=== PATIENT | male | born 1940 | race Caucasian/White ===

== ENCOUNTER 2018-08-07 11:21 | Outpatient (CLI) | payer OTHER, SELFPAY ==
[2018-08-08 10:31] LABS: PSA, Diagnostic 0.1 ng/ml (0-6.5)
== END 2018-08-07 11:41 ==
PROVIDERS: PCP Family Medicine; Visit Provider Radiology Radiation Oncology
DX: C61 Malignant neoplasm of prostate (principal)
CPT/HCPCS: 36415; 84153

== ENCOUNTER 2018-10-20 08:58 | Outpatient (CLI) | payer OTHER, SELFPAY ==
[2018-10-21 09:53] LABS: PSA, Diagnostic 0.1 ng/ml (0-6.5)
[2018-10-22 09:49] LABS: Testosterone, Total 318 ng/dL (240-950)
== END 2018-10-20 09:18 ==
PROVIDERS: PCP Family Medicine; Visit Provider Nurse Practitioner
DX: C61 Malignant neoplasm of prostate (principal)
CPT/HCPCS: 36415; 84403; 84153

== ENCOUNTER 2018-11-05 01:51 | Outpatient (CLI) | payer OTHER, SELFPAY ==
[2018-11-05 08:56] LABS: HCT 45.1 % (40.0-50.0); HGB 15.1 g/dL (13.5-17.5); Mean Corp. HGB Concentration 33.5 g/dL (32.0-36.0); Mean Corpuscular Hemoglobin 32.3 pg (27.0-33.0); Mean Corpuscular Volume 96.6 fL (80-95); Mean Platelet Volume 8.9 fL (8.0-11.0); Platelet Count 144 x1000/uL (130-400); RBC 4.67 m/cumm (4.50-6.00); White Blood Cell Count 3.11 k/cumm (4.4-10.8)
[2018-11-05 09:29] LABS: Hemoglobin A1C 5.7 % (4.5-6.2)
[2018-11-05 10:22] LABS: ALT 45 U/L (12-78); AST 33 U/L (15-37); Albumin 3.9 g/dL (3.4-5.0); Alkaline Phosphatase 48 U/L (46-116); BUN 21 mg/dL (7-18); Bilirubin, Total 0.6 mg/dL (0.2-1.0); CREATININE 1.16 mg/dL (0.70-1.30); Calcium 8.7 mg/dL (8.5-10.1); Chloride 102 mmol/L (98-107); Cholesterol 199 mg/dL (50-200); Glucose 103 mg/dL (70-100); HDL Cholesterol 68 mg/dL (40-60); LDL CHOLESTEROL 110 mg/dL (<100); Potassium 4.2 mmol/L (3.5-5.1); Sodium 139 mmol/L (136-145); Triglyceride 77 mg/dL (30-150)
== END 2018-11-05 02:11 ==
PROVIDERS: PCP Family Medicine; Visit Provider Family Medicine
DX: R73.01 Impaired fasting glucose (principal); I10 Essential (primary) hypertension; Z01.818 Encounter for other preprocedural examination
CPT/HCPCS: 36415; 80053; 80061; 83721; 85027; 83036

== ENCOUNTER 2018-12-24 10:12 | Outpatient (CLI) | payer OTHER, SELFPAY ==
[2018-12-24 10:42] LABS: Abs Immature Grans 0.02 k/cumm (0.0-0.09); Absolute Basophil Count 0.01 k/cumm (0.0-0.2); Absolute Eosinophil Count 0.08 k/cumm (0.0-0.7); Absolute Lymphocyte Count 0.85 k/cumm (1.2-3.4); Absolute Monocyte Count 0.48 k/cumm (0.11-0.7); Absolute Neutrophil Count 3.12 k/cumm (1.2-6.7); Basophils % 0.2; Eosinophils % 1.8; HCT 44.8 % (40.0-50.0); HGB 15.1 g/dL (13.5-17.5); Immature Grans % 0.4; Lymphocytes % 18.6; Mean Corp. HGB Concentration 33.7 g/dL (32.0-36.0); Mean Corpuscular Hemoglobin 32.1 pg (27.0-33.0); Mean Corpuscular Volume 95.3 fL (80-95); Mean Platelet Volume 9.1 fL (8.0-11.0); Monocytes % 10.5; Neutrophils % 68.5; Platelet Count 157 x1000/uL (130-400); RBC Distribution Width 13.4 % (11.8-14.1); White Blood Cell Count 4.56 k/cumm (4.4-10.8)
[2018-12-24 11:57] LABS: ALT 37 U/L (12-78); AST 28 U/L (15-37); Albumin 3.6 g/dL (3.4-5.0); Alkaline Phosphatase 50 U/L (46-116); Anion Gap 7.5 mmol/L (3-11); BUN 22 mg/dL (7-18); Bilirubin, Total 0.5 mg/dL (0.2-1.0); CO2 28.5 mmol/L (21.0-32.0); CREATININE 1.12 mg/dL (0.70-1.30); Chloride 105 mmol/L (98-107); Glucose 74 mg/dL (70-100); Magnesium 2.2 mg/dL (1.8-2.4); Potassium 4.7 mmol/L (3.5-5.1); Sodium 141 mmol/L (136-145); TSH (W/Ref FT4) 1.56 uIU/mL (0.358-3.74)
== END 2018-12-24 10:32 ==
PROVIDERS: PCP Family Medicine; Visit Provider Family Medicine
DX: R00.2 Palpitations (principal); R73.01 Impaired fasting glucose
CPT/HCPCS: 36415; 80053; 83735; 84443; 85025

== ENCOUNTER 2018-12-25 02:52 | Outpatient (CLI) | payer OTHER, SELFPAY ==
--- NOTE | 2019-01-12 11:24 | ZIOP_ITS ---
ELIERO MONITOR REPORT DATE OF DICTATION: January 12, [address]: 11 days, 22 hours, December 25-2018 Baseline rhythm sinus. Occasional single PAC. SVT noted 11,028 bursts. Longest burst 5 minutes, 21 second duration, average rate 116 bpm. Maximum rate SVT 182 bpm. Rare single PVC. No VT. No bradycardia. 52 triggered events occurring during SVT +/- single PAC, single PVC, rates 62-150 bpm. 11 symptomatic episodes. Skipped, irregular beats, fluttering, racing, deep breath, pounding, all no indira during sinus rhythm +/- single PAC's, +/- SVT. Heart rates 65-144 bpm. Average heart rate sinus 69 bpm, range 52-106 bpm.
== END 2018-12-25 03:12 ==
PROVIDERS: PCP Family Medicine; Visit Provider Family Medicine
DX: R00.2 Palpitations (principal); I47.1 Supraventricular tachycardia
CPT/HCPCS: 93225

== ENCOUNTER 2019-01-29 10:31 | Outpatient (CLI) | payer OTHER, SELFPAY ==
[2019-01-30 09:46] LABS: PSA, Diagnostic <0.1 ng/ml (0-6.5)
[2019-02-02 16:21] LABS: Testosterone, Total 406 ng/dL (240-950)
== END 2019-01-29 10:51 ==
PROVIDERS: PCP Family Medicine; Visit Provider Nurse Practitioner
DX: C61 Malignant neoplasm of prostate (principal)
CPT/HCPCS: 36415; 84403; 84153

== ENCOUNTER 2019-07-06 01:52 | Outpatient (CLI) | payer OTHER, SELFPAY ==
[2019-07-06 10:34] LABS: Magnesium 2.1 mg/dL (1.8-2.4)
[2019-07-07 09:24] LABS: PSA, Diagnostic <0.1 ng/ml (0-6.5)
== END 2019-07-06 02:12 ==
PROVIDERS: PCP Family Medicine; Visit Provider Nurse Practitioner
DX: R00.2 Palpitations (principal); C61 Malignant neoplasm of prostate
CPT/HCPCS: 36415; 83735; 84153

== ENCOUNTER 2019-08-03 00:59 | Outpatient (CLI) | payer OTHER, SELFPAY ==
--- NOTE | 2019-08-03 12:36 | DI.US_ITS ---
SYMPTOMS/DIAGNOSIS: PROSTATE CA, FEELS LIKE NOT EMPTYING COMPLETELY RENAL ULTRASOUND: The right kidney measures 8.7 cm. The left kidney 9.7 cm. In the left kidney there is a 9 x 8 x 9 mm hyperechoic avascular region involving the mid pole cortex which may represent a mass. The prevoid bladder contains 63 cc's. The postvoid bladder 2 cc's. SUMMARY: The possibility of a left renal mass is raised. Further assessment with renal CT is recommended.
== END 2019-08-03 01:19 ==
PROVIDERS: PCP Family Medicine; Visit Provider Nurse Practitioner
DX: C61 Malignant neoplasm of prostate (principal); R39.14 Feeling of incomplete bladder emptying; N28.89 Other specified disorders of kidney and ureter
CPT/HCPCS: 76770

== ENCOUNTER 2019-08-17 01:06 | Outpatient (CLI) | payer OTHER, SELFPAY ==
[2019-08-17] MEDS: Omnipaque 350 MG/ML 100 ML BTL IJ (10:56)
--- NOTE | 2019-08-17 11:01 | DI.CT_ITS ---
EXAM: CT ABDOMEN PELVIS WO/W TECHNIQUE: Imaging Protocol: Axial computed tomography images with coronal and sagittal reformatted images were created and reviewed CONTRAST MATERIAL: Intravenous: Omnipaque 350 Contrast volume:100 mL contrast route:IV - Oral:No COMPARISON: US renal from 08/03/2019 FINDINGS: Noncontrast CT scan of the abdomen and pelvis shows no evidence of nephrolithiasis or ureterolithiasi s. There is cholelithiasis present. No biliary ductal dilatation is present CT scan of the abdomen and pelvis was then performed following the uneventful administration of intra venous contrast material. There are no acute findings in the lung bases. There is decreased attenua tion of the liver suggesting fatty infiltration. No suspicious hepatic mass is present. The portal, superior mesenteric, splenic veins are patent. There is pancreatic atrophy present. Calcifications are seen in the spleen consistent with prior granulomatous disease. It is of an adrenal mass. The right kidney shows normal and symmetric enhancement. No evidence of a solid renal mass or obstru ction. The left kidney shows normal and symmetric enhancement. There is no evidence of a solid mass or obst ruction. There is what appears to be an area of cortical scarring in the upper pole laterally. This appears to correspond to the area on the ultrasound dated 08/03/2019. The urinary bladder is intact there is diverticulosis of the colon. There is no evidence of acute di verticulitis. There is no evidence of bowel obstruction or inflammation. Normal appendix is seen in the right lower quadrant. There is atherosclerosis of the abdominal aorta. There is no evidence of an aneurysm. No significant abdominal pelvic adenopathy, ascites, or pneumoperitoneum is present. Degenerative changes are present in the spine. Grade 1 pseudo spondylolisthesis of L4 on L5 is prese nt. 7 minutes delayed images of the abdomen and pelvis were performed there are no filling defects within the renal collecting systems. The urinary bladder is intact no filling defect is identified. IMPRESSION: No evidence of a left renal mass. The area of concern appears to represent a focal area of cortical scarring within the superior aspect of the left kidney. No evidence of nephrolithiasis or obstructive uropathy. Cholelithiasis. DATA REPOSITORY: All CT scans at this facility are submitted to the National Radiology Data Registry (NRDR) Dose Index Registry (DIR) with the [employer] (ACR). RADIATION OPTIMIZATION: All CT scans at this facility use at least one of these dose optimization te chniques: automated exposure control; mA and/or kV adjustment per patient size (includes targeted exa ms where dose is matched to clinical indication); or iterative reconstruction.
== END 2019-08-17 01:26 ==
PROVIDERS: PCP Family Medicine; Visit Provider Nurse Practitioner
DX: K80.20 Calculus of gallbladder without cholecystitis without obstruction (principal); N28.89 Other specified disorders of kidney and ureter; R39.14 Feeling of incomplete bladder emptying; K76.0 Fatty (change of) liver, not elsewhere classified
CPT/HCPCS: 74178; 82565; J3490

== ENCOUNTER 2019-11-02 08:59 | Outpatient (CLI) | payer OTHER, SELFPAY ==
[2019-11-04 15:12] LABS: PSA, Diagnostic <0.1 ng/mL (0.0-6.5)
[2019-11-05 03:02] LABS: Testosterone, Total 431 ng/dL (240-950)
== END 2019-11-02 09:19 ==
PROVIDERS: PCP Nurse Practitioner; Visit Provider Nurse Practitioner
DX: C61 Malignant neoplasm of prostate (principal)
CPT/HCPCS: 36415; 84403; 84153

== ENCOUNTER 2019-11-13 03:48 | Outpatient (CLI) | payer OTHER, SELFPAY ==
--- NOTE | 2019-11-30 08:18 | ZIOP_ITS ---
Date of service: 11/30/19 Time of Service: 08:18 ZIO Patch [employer] Analyst Note: This is a 2-week ZIO patch ordered for indication of supraventricular tachycardia. ?The patient was in normal sinus rhythm for the majority of the recording. ?There were 3 episodes of supraventricular tachycardia with the longest lasting 18 beats. ?There were occasional (4.9%) supraventricular ectopic beats. ?There were no episodes of ventricular tachycardia and rare (less than 1%) ventricular ectopic beats. ?There were no pauses greater than 3 seconds or evidence of high degree heart block. ?Patient triggers were associated with sinus rhythm and singular supraventricular ectopic beats.
== END 2019-11-13 04:08 ==
PROVIDERS: PCP Nurse Practitioner; Visit Provider Nurse Practitioner
DX: I47.1 Supraventricular tachycardia (principal); I49.3 Ventricular premature depolarization
CPT/HCPCS: 0296T

== ENCOUNTER 2019-11-30 08:18 | Outpatient (CLI) | payer OTHER, SELFPAY | END 2019-11-30 08:38 | PROVIDERS: PCP Nurse Practitioner; Referring Provider Nurse Practitioner; Visit Provider Internal Medicine Cardiovascular Disease | DX: I47.1 Supraventricular tachycardia (principal); I49.3 Ventricular premature depolarization | CPT/HCPCS: 0298T ==

== ENCOUNTER 2020-04-01 11:19 | Outpatient (RCR) | payer OTHER, SELFPAY ==
[2020-04-04 13:59] LABS: PSA, Ultrasensitive 0.02 ng/mL (<= 6.5)
[2020-04-06 07:47] LABS: Testosterone, Total 470 ng/dL (240-950)
== END 2020-04-17 23:59 | disposition home or self-care (01) ==
LOC: INF 11:19
PROVIDERS: PCP Nurse Practitioner; Visit Provider Nurse Practitioner
DX: C61 Malignant neoplasm of prostate (principal)
CPT/HCPCS: 36415; 84153; 84403

== ENCOUNTER 2020-09-16 02:56 | Outpatient (CLI) | payer OTHER, SELFPAY ==
[2020-09-16 10:59] LABS: CREATININE 1.17 mg/dL (0.70-1.30); Potassium 4.3 mmol/L (3.5-5.1)
[2020-09-20 12:27] LABS: PSA, Ultrasensitive 0.02 ng/mL (<= 6.5)
== END 2020-09-16 03:16 ==
PROVIDERS: PCP Nurse Practitioner; Visit Provider Nurse Practitioner
DX: I10 Essential (primary) hypertension (principal); C61 Malignant neoplasm of prostate
CPT/HCPCS: 36415; 84153; 82565; 84132

== ENCOUNTER 2020-09-17 10:23 | Outpatient (REF) | payer OTHER, SELFPAY ==
[2020-10-03 15:36] LABS: Misc Referral (VDH) See Comments
== END 2020-09-17 10:43 ==
LOC: LBN 10:23
PROVIDERS: PCP Nurse Practitioner; Visit Provider Nurse Practitioner
DX: R69 Illness, unspecified (principal)
CPT/HCPCS: 87505

== ENCOUNTER 2021-02-27 13:57 | Outpatient (CLI) | payer OTHER, SELFPAY ==
--- NOTE | 2021-02-27 13:45 | RT.EKG_ITS ---
APPROVED REPORT Exam: Resting ECG Patient Location: O HR:75 bpm ECG Measurements Heart Rate 75 AXIS CO 184 P 42 QRSd 158 QRS -42 QT 412 T -3 QTc 462 Conclusion Sinus rhythm...normal P axis, V-rate 60- 99 RBBB and LAFB...QRSd >120mS, axis(-40,240) Inferior infarct, old...Q >35mS, II III aVF
== END 2021-02-27 13:58 | disposition home or self-care (01) ==
LOC: DI.CM 13:57
PROVIDERS: PCP Nurse Practitioner; Visit Provider Nurse Practitioner Family
DX: I47.1 Supraventricular tachycardia (principal)
CPT/HCPCS: 93010

== ENCOUNTER → 2021-05-04 11:19 | Outpatient (BNVA) | payer OTHER, SELFPAY | PROVIDERS: PCP Nurse Practitioner; Referring Provider Nurse Practitioner; Visit Provider Physical Therapy Assistant | DX: R19.5 Other fecal abnormalities (principal); I10 Essential (primary) hypertension; Z86.010 Personal history of colon polyps | CPT/HCPCS: 99214 ==

== ENCOUNTER 2021-05-08 07:07 | Day surgery (SDC) | payer OTHER, SELFPAY ==
[2021-05-08 07:33] VITALS: BP 163/100; PULSE 95; RESP 18; TEMP 36.2; O2SAT 96
[2021-05-08] MEDS: Lactated Ringers 1,000 ML 80 ML IV (07:53)
--- NOTE | 2021-05-08 08:01 | ANES.PREOP_ITS ---
General Info Date of Service Date Performed: 05/08/21 Height: 5 ft 5 in Weight: 81.2 kg Body Mass Index (BMI): 29.7 Surgical Procedure: Operation Date: 05/08/21 08:35 Proposed Procedures Side Surgeon talia Smart MD Meds Allergies and Home Medications Allergies Allergy/AdvReac Type Severity Reaction Status Date / Time No Known Drug Allergies Allergy Verified 05/08/21 07:29 Home Medication Medication Instructions Recorded nebulizers #1 each 01/12/20 albuterol sulfate 90 mcg/actuation 2 puff INHALATION Q4H PRN #3 04/08/20 aerosol inhaler inhaler fluticasone propionate 250 1 inh IH BID #60 each 01/31/21 mcg/actuation blister powder for inhalation lisinopril 10 mg tablet 10 mg PO DAILY #90 tab 01/31/21 loperamide 2 mg capsule 4 mg PO Q6H PRN #90 cap MDD 16mg 02/27/21 bisacodyl 5 mg tablet,delayed 5 mg PO ONCE #4 tab 05/04/21 release esomeprazole magnesium 20 mg 20 mg PO DAILY 05/04/21 capsule,delayed release polyethylene glycol 3350 17 238 g PO ONCE #238 g 05/04/21 gram/dose oral powder Current Visit Medications: Current Medications Generic Name Dose Route Start Last Admin Trade Name Mikeq PRN Reason Stop Dose Admin Ringer's Solution 1,000 mls @ 80 mls/hr 05/08/21 06:00 05/08/21 07:53 IV 06/04/21 23:59 80 mls/hr INFUSION DARIO Administration IV Miscellaneous Supplies 1 each 05/08/21 06:00 Iv Access IV 06/04/21 23:59 DIRECTED DARIO Sodium Chloride 0 ml 05/08/21 06:00 Normal Saline Flush 10 Ml Syr IV 06/04/21 23:59 PRN PRN Sodium Chloride 0 ml 05/08/21 06:00 Normal Saline 10 Ml Vial IJ 06/04/21 23:59 DIRECTED PRN Sterile Water 0 ml 05/08/21 06:00 Water,Injection,Sterile 10 Ml Vial IJ 06/04/21 23:59 DIRECTED PRN PFSH Active Problems Active Problems: Problem Status Onset Code Allergic rhinitis J30.9 Asthma J45.909 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 Degenerative arthritis 07/14/15 M19.90 Essential hypertension I10 Hearing loss H91.90 Hiatal hernia K44.9 Impaired fasting glucose 10/30/13 R73.01 Polyp of colon K63.5 Prostate cancer 12/10/17 C61 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 cardiology- 08/2019- plan ablation second opinion in [place]- no ablation-Dr.Ursa Wong @ [facility] Tendonitis of both rotator cuffs (07/29/15) Surgical History Surgical History Extraction of cataract History of cataract removal with insertion of prosthetic lens Tobacco Smoking/Tobacco Use Status: Former Tobacco Use Tobacco: How many years used: 16 Passive smoking exposure: Yes Alcohol Alcohol Intake: current Alcohol intake frequency: 0-2 drinks per day Alcohol type: wine and hard liquor Substance Use Substance use: Never Substance use type: does not use Vital Signs and Lab Results Vital Signs Most Recent Vital Signs in EMR: Most Recent Vital Signs Temp Pulse Resp BP Pulse Ox 36.2 C L 95 H 18 163/100 H 96 05/08/21 07:33 05/08/21 07:33 05/08/21 07:33 05/08/21 07:33 05/08/21 07:33 Lab Results Blood Type / Crossmatch: No Data to Display Complete Blood Count: No Data to Display Complete Metabolic Panel: No Data to Display Liver Function Panel: No Data to Display Coagulation Panel: No Data to Display Cardiac Panel: No Data to Display Arterial Blood Gas: No Data to Display Venous Blood Gas: No Data to Display Pancreas Panel: No Data to Display Thyroid Panel: No Data to Display Infectious Disease: No Data to Display Blood Cultures: No Data to Display Toxicology Panel: No Data to Display Imaging and Studies Imaging and Studies EKG Summary: 02/2021: Conclusion Sinus rhythm...normal P axis, V-rate 60- 99 RBBB and LAFB...QRSd >120mS, axis(-40,240) Inferior infarct, old...Q >35mS, II III aVF Anesthesia Assessment and Plan Anesthesia History Personal History: No History of Anesthesia Complications Family History: No Family History of Anesthesia Complications Exercise Tolerance Exercise Tolerance: Metabolic Equivalents>4 Pertinent Negatives Pertinent Negatives: No Symptoms of GERD and No Major Cardiovascular Symptoms or Complaints Cardiac & Pulmonary Exam Cardiac Exam: Normal S1/S2 Heart Sounds Pulmonary Exam: Clear Bilateral Breath Sounds Airway Exam Known Difficult Airway: No Mallampati Class: 2 Mouth Opening: Normal (> 3cm) Thyromental Distance: Greater than 3 cm Facial Hair: Full [place] Range of Motion: Full ROM Neck Circumference: Normal Teeth Condition: Loose or Chipped (Loose right bottom) ASA Classification ASA Score: ASA 2 Emergency Case?: No NPO Status NPO Status: NPO Clears >2 hours, Solids >8 hours Anesthesia Plan Resuscitation Status: Full Code Anesthesia Technique: General Anesthesia Airway Planned: Natural Airway Monitors Used: Standard Monitors
[2021-05-08 08:02] VITALS: BMI 29.7
--- NOTE | 2021-05-08 10:00 | BOWEL_PTH ---
PATIENT: Calvin Herbert LOC: [facility] U#:[id number] AGE/SX: 80/M ROOM: RE05/08/[address]: James Smart : 1940 BED: DIS: 05/08/2021 SPEC #: [id number] RECD: 05/08/21 11:36 STATUS: JOURDAN RE #: [id number] STEPHON: 05/08/21 10:[address]: James Smart DEPT: Surgical Specimen RECD BY: Marge Marie ENTERED: 05/08/21 11:40 SP TYPE: Bowel OTHR DR: Gege Doran, PhD COPY DIRECTOR Tissues: 1 - BIOPSY BOWEL 2 - BIOPSY BOWEL 3 - BIOPSY BOWEL Procedures: GROSS AND MICRO LEVEL 4 IMMUNOPEROXIDASE STAIN Comments: [id number]
[2021-05-08 10:29] VITALS: BP 92/56; PULSE 95; RESP 13; TEMP 36.2; O2SAT 93
--- NOTE | 2021-05-08 10:33 | COLE_ITS ---
Date of service: 05/08/21 Time of Service: 10:33 Colonoscopy Report Date of procedure: 05/08/21 Pre-op diagnosis general: +Cologuard, h/o tubular adenoma, +hematochezia Post-op diagnosis procedure note: other (radiation coloproctitis, polyp) Procedure: Colonoscopy with biopsy Surgeon: James Smart Anesthesia Type: MAC Estimated blood loss (mL): 5 Pathology: other (1. proximal transverse biosy, questionable radiation change 2. descending colon polyp @ 60cm 3. 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 His most recent colonoscopy was in 2010, and no polyps were found. He underwent radiation treatment for prostate cancer 2 years ago, and subsequently has been having change in stool caliber, mucous, occasional hematochezia, and urgency. He tested positive on a recent Cologuard test. Prep: Miralax/Dulcolax Retraction Time: >20 minute Findings: 1. Mild radiation changes in ascending colon 2. Moderate radiation changes in the rectosigmoid with vascular ecstasias, edema,and pallor 3. Subcentimeter polyp in descending colon. 4. Mild, scattered diverticulosis in sigmoid colon. Procedure Description: After informed consent was obtained, the patient was taken to the procedure room and placed in a left lateal decubitus position. Monitors were applied and a time out was performed. The patient's name, date of , procedure, allergies to medications, and metal in their body were reviewed. The patient was then sedated. Once sedated and comfortable, a digital rectal exam was done. External exam showed a questionable healed anal fissure. Internal exam revealed normal sphincter tone, and no palpable masses or gross blood. The colonoscope was then introduced and advanced to the cecum under direct visualization with mild difficulty. The ileocecal valve and appendiceal orifice were visualized. The prep was fair. The scope was then slowly withdrawn over 20 minutes in a circumferential manner to the rectum. In doing so, some questionable radiation change was seen in the ascending colon was biopsied. A polyp was found in the descending colon and was taken by cold forceps. There was mild, scattered diverticulosis noted. The mucosa in the rectosigmoid is pale, with punctate vascular ecstasias, and mucoid collections. 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 In the rectum, the scope was retroflexed, and very minimal internal hemorrhoids were noted. The scope was straightened and withdrawn from the anus. The patient tolerated the procedure well, and there were no immediate complications. The patient was taken to the Day Surgery Unit recovery area in good condition. Follow up: Await pathology. F/u to establish treatment plan for radiation proctitis symptoms.
[2021-05-08 10:55] VITALS: BP 120/83; PULSE 61; RESP 16; TEMP 36.4; O2SAT 94
--- NOTE | 2021-05-08 11:22 | W.ANESPOSTOP ---
Postoperative Evaluation Date, Time and Location Date Performed: 05/08/21 Time Performed: 11:22 Patient Location: Day Surgery Unit Vital Signs Most Recent Imported Vital Signs: Most Recent Vital Signs Temp Pulse Resp BP Pulse Ox 36.4 C L 61 16 120/83 94 05/08/21 10:55 05/08/21 10:55 05/08/21 10:55 05/08/21 10:55 05/08/21 10:55 Pain Score Most Recent Pain Score: Most Recent Pain Score Pain Level 0 05/08/21 10:55 Assessment Mental Status: Awake (Alert & Oriented to Patient Baseline) Airway and Respiratory Function: Patent airway with normal (patient baseline) respiratory exam Cardiovascular Function: Hemodynamically Stable Hydration Status: Adequately Hydrated Nausea & Vomiting: No Nausea or Vomiting Pain: Pt. Denies Any Pain Peripheral Nerve Block: Patient did not receive a nerve block
== END 2021-05-08 11:22 | disposition home or self-care (01) ==
PROVIDERS: PCP Nurse Practitioner; Visit Provider Surgery
PROC: 0DJD8ZZ Inspection of Lower Intestinal Tract, Via Natural or Artificial Opening Endoscopic (ICD-10-PCS; CPT 45378; principal; 2021-05-08 08:30)
DX: Z12.11 Encounter for screening for malignant neoplasm of colon (principal); D12.4 Benign neoplasm of descending colon; K62.7 Radiation proctitis; Z86.010 Personal history of colon polyps; I10 Essential (primary) hypertension; K44.9 Diaphragmatic hernia without obstruction or gangrene
CPT/HCPCS: 45380; 88305; 88361; J2001

== ENCOUNTER → 2021-05-25 14:14 | Outpatient (BNVA) | payer OTHER, SELFPAY | PROVIDERS: PCP Nurse Practitioner; Referring Provider Nurse Practitioner; Visit Provider Surgery | DX: K44.9 Diaphragmatic hernia without obstruction or gangrene (principal); K63.5 Polyp of colon; K62.7 Radiation proctitis; K52.9 Noninfective gastroenteritis and colitis, unspecified; Z85.46 Personal history of malignant neoplasm of prostate | CPT/HCPCS: 99213; 99214 ==

== ENCOUNTER 2021-05-26 11:24 | Outpatient (CLI) | payer OTHER, SELFPAY ==
[2021-05-29 12:21] LABS: PSA, Ultrasensitive 0.02 ng/mL (<= 6.5)
== END 2021-05-26 11:25 | disposition home or self-care (01) ==
LOC: LBO 05-29 11:25
PROVIDERS: PCP Nurse Practitioner; Visit Provider Nurse Practitioner Family
DX: C61 Malignant neoplasm of prostate (principal)
CPT/HCPCS: 36415; 84153

== ENCOUNTER → 2021-06-15 08:56 | Outpatient (BNVA) | payer OTHER, SELFPAY | PROVIDERS: PCP Nurse Practitioner; Referring Provider Nurse Practitioner; Visit Provider Surgery | DX: K52.89 Other specified noninfective gastroenteritis and colitis (principal); K62.7 Radiation proctitis; K63.5 Polyp of colon | CPT/HCPCS: 99214 ==

== ENCOUNTER 2021-06-22 14:35 | Outpatient (REF) | payer OTHER, SELFPAY ==
[2021-06-22 15:37] LABS: C Diff PCR Negative (Negative)
[2021-06-23 10:56] LABS: Campylobacter PCR Negative (Negative); Salmonella PCR Negative (Negative); Shiga Toxin PCR Negative (Negative); Shigella/Enteroinvasive Ecoli Negative (Negative)
== END 2021-06-22 14:36 | disposition home or self-care (01) ==
LOC: LBN 14:35
PROVIDERS: PCP Nurse Practitioner; Visit Provider Surgery
DX: K52.9 Noninfective gastroenteritis and colitis, unspecified (principal); K62.7 Radiation proctitis
CPT/HCPCS: 87493; 87505; 83993

== ENCOUNTER 2021-06-23 07:00 | Outpatient (REF) | payer OTHER, SELFPAY ==
[2021-06-28 15:58] LABS: Calprotectin 136.8 mcg/g
== END 2021-06-23 07:01 | disposition home or self-care (01) ==
LOC: LBN 07:00
PROVIDERS: PCP Nurse Practitioner; Visit Provider Surgery
DX: K52.9 Noninfective gastroenteritis and colitis, unspecified
CPT/HCPCS: 83993

== ENCOUNTER 2021-07-08 08:50 | Outpatient (REF) | payer OTHER, SELFPAY | END 2021-07-08 08:51 | disposition home or self-care (01) | LOC: LBN 08:50 | PROVIDERS: PCP Nurse Practitioner; Visit Provider Physician Assistant Medical | DX: R19.7 Diarrhea, unspecified (principal) | CPT/HCPCS: 87329 ==

== ENCOUNTER 2021-09-12 03:41 | Outpatient (CLI) | payer MEDICARE, SELFPAY ==
[2021-09-12 10:09] LABS: HCT 47.5 % (40.0-50.0); HGB 15.6 g/dL (13.5-17.5); MCH 32.4 pg (27.0-33.0); MCHC 32.8 % (32.0-36.0); MCV 98.8 fL (80-95); MPV 8.7 fL (8.0-11.0); Platelet Count 157 10^3/uL (130-400); RBC 4.81 10^6/uL (4.36-5.78); RDW 12.8 % (11.8-14.1); RDW-SD 47.1 fL; WBC 4.96 10^3/uL (4.4-10.8)
[2021-09-12 11:49] LABS: CREATININE 1.2 mg/dL (0.70-1.30); Calculated LDL 121 mg/dL (<100); Cholesterol 199 mg/dL (<200); HDL Cholesterol 64 mg/dL (40-60); Potassium 4.4 mmol/L (3.5-5.1); TSH (W/Ref FT4) 1.52 uIU/mL (0.36-3.74); Triglyceride 73 mg/dL (<150)
[2021-09-12 11:51] LABS: ALT 72 U/L (16-63); AST 45 U/L (15-37); Albumin 3.8 g/dL (3.4-5.0); Alkaline Phosphatase 46 U/L (46-116); BUN 19 mg/dL (7-18); Bilirubin, Total 0.8 mg/dL (0.2-1.0); CREATININE 1.2 mg/dL (0.70-1.30); Calcium 8.8 mg/dL (8.5-10.1); Chloride 106 mmol/L (98-107); Glucose 94 mg/dL (74-106); Potassium 4.4 mmol/L (3.5-5.1); Sodium 142 mmol/L (136-145); Total Protein 7.4 g/dL (6.4-8.2)
== END 2021-09-12 03:42 | disposition home or self-care (01) ==
LOC: LBO 03:41
PROVIDERS: Family Medicine; PCP Nurse Practitioner; Visit Provider Nurse Practitioner
DX: I47.1 Supraventricular tachycardia (principal); I10 Essential (primary) hypertension
CPT/HCPCS: 36415; 80053; 80061; 85027; 82565; 84132; 84443

== ENCOUNTER → 2021-09-29 08:34 | Outpatient (BNVA) | payer MEDICARE, SELFPAY | PROVIDERS: PCP Nurse Practitioner; Referring Provider Nurse Practitioner; Visit Provider Internal Medicine Cardiovascular Disease | DX: I47.1 Supraventricular tachycardia (principal); I10 Essential (primary) hypertension | CPT/HCPCS: 93005; 99203; 99214 ==

== ENCOUNTER 2021-10-05 02:27 | Outpatient (CLI) | payer MEDICARE, SELFPAY ==
[2021-10-05] MEDS: Inhaler, Assist Device 1 EACH MC (14:15)
[2021-10-05] MEDS: Albuterol HFA 18 GM 200 PUFF INH IH (14:15)
--- NOTE | 2021-10-09 09:35 | W.PFT ---
Date of service: 10/05/21 Time of Service: 12:52 Pulmonary Function Test Result Requesting Provider Gege Doran Indications: Asthma Interpretation Spirometry: There is no airflow limitation. There is no significant bronchodilator effect. Lung Volumes: Lung volumes are normal Diffusion Capacity: Diffusion is normal Airway Pressure: Airways resistance is normal Impression Normal Pulmonary Function Test Clinical Correlation therefore is recommended.
== END 2021-10-05 02:28 | disposition home or self-care (01) ==
LOC: RT 02:27
PROVIDERS: PCP Nurse Practitioner; Visit Provider Nurse Practitioner
DX: J45.20 Mild intermittent asthma, uncomplicated (principal); Z87.891 Personal history of nicotine dependence
CPT/HCPCS: 94060; 94726; 94729

== ENCOUNTER 2021-11-28 17:58 | Outpatient (REF) | payer MEDICARE, SELFPAY ==
[2021-11-28 10:46] LABS: Abs Immature Grans 0.02 10^3/uL (0.0-0.06); Absolute Basophil Count 0.03 10^3/uL (0.0-0.2); Absolute Eosinophil Count 0.05 10^3/uL (0.0-0.7); Absolute Lymphocyte Count 0.97 10^3/uL (1.2-3.4); Absolute Monocyte Count 0.43 10^3/uL (0.1-0.8); Absolute Neutrophil Count 3.25 10^3/uL (1.2-6.7); Basophils % 0.6; Eosinophils % 1.1; HGB 15.4 g/dL (13.5-17.5); Immature Grans % 0.4; Lymphocytes % 20.4; MCH 32.1 pg (27.0-33.0); MCHC 33.5 % (32.0-36.0); MCV 95.8 fL (80-95); MPV 9.3 fL (8.0-11.0); Monocytes % 9.1; Neutrophils % 68.4; Nucleated RBC 0 %; Platelet Count 144 10^3/uL (130-400); RDW 13.1 % (11.8-14.1); WBC 4.75 10^3/uL (4.4-10.8)
[2021-11-29 10:55] LABS: IgE 42 IU/mL (<158)
== END 2021-11-28 17:59 | disposition home or self-care (01) ==
LOC: LBN 17:58
PROVIDERS: PCP Nurse Practitioner; Visit Provider Student in an Organized Health Care Education/Training Program
DX: J45.20 Mild intermittent asthma, uncomplicated (principal)
CPT/HCPCS: 82785; 85025

== ENCOUNTER 2021-11-28 19:08 | Outpatient (CLI) | payer MEDICARE, SELFPAY ==
--- NOTE | 2021-11-28 12:15 | DI.RAD_ITS ---
Exam(s) XR CHEST 2V PA LATERAL EXAM: XR CHEST 2V PA LATERAL CLINICAL HISTORY: worsening asthma, Dyspnea,j45.20 TECHNIQUE: COMPARISON: CR LEFT FOOT COMPLETE from 09/18/[address] ABDOMEN PELVIS WO/W from 08/17/2019 FINDINGS: No prior chest film is available for comparison. There appear to be mild changes of scarring at the lung bases. There is mild cardiomegaly. There is no focal consolidation. There is no pleural effus ion. IMPRESSION: No evidence of acute process. RADIATION DOSE DELIVERED: Total DLP
== END 2021-11-28 19:28 ==
PROVIDERS: PCP Nurse Practitioner; Visit Provider Student in an Organized Health Care Education/Training Program
DX: J45.20 Mild intermittent asthma, uncomplicated (principal)
CPT/HCPCS: 71046

== ENCOUNTER 2021-12-13 00:54 | Outpatient (CLI) | payer MEDICARE, SELFPAY ==
--- NOTE | 2021-12-13 10:26 | DI.US_ITS ---
APPROVED REPORT EXAM: Comprehensive 2D, Doppler, and color-flow Echocardiogram Patient Location: Out-Patient Paramedic Rn: Mary Ortiz RDCS (AE) Indications: Stroke workup, Branch retinal artery occlusion, HTN Echo Enhancing Agent Indication: Rule out Shunt Agent(s) / Amount(s) Used: Agitated Saline 30.0 cc Comments: Contrast study was performed with 3 IV injections of 10ccs of agitated normal saline, at re st, with cough and post valsalva maneuver. Negative contrast study for shunt flow. Other Information Study Quality: Fair. Technically limited study due to body habitus. Conclusion Left Ventricle : The left ventricle is normal size. The left ventricular ejection fraction is low nor mal range. There is normal left ventricular wall thickness. There is normal LV segmental wall motion. The left ventricular diastolic function is normal. LVEF is 51%. Right Ventricle : Right ventricle is not well visualized. Right ventricular systolic function could n ot be assessed. Atria : The left atrium size is normal. The interatrial septum is intact with no evidence for an atri al septal defect. Saline bubble contrast intravenous injection does not demonstrate PFO. The right at rium size is normal. Mitral Valve : Mild mitral annular calcification. Mild mitral regurgitation. No evidence of mitral va lve stenosis. Great Vessels : The aortic root is normal in size. The ascending aorta is mildly dilated. Aortic arch is mildly dilated. IVC is normal in size and collapses >50% with inspiration. See remainder of stay for further details Wall motion Left Ventricle The left ventricle is normal size. The left ventricular ejection fraction is low normal range. There is normal left ventricular wall thickness. There is normal LV segmental wall motion. The left ventric ular diastolic function is normal. There is no ventricular septal defect visualized. LVEF is 51%. Right Ventricle Right ventricle is not well visualized. Right ventricular systolic function could not be assessed. Atria The left atrium size is normal. The right atrium size is normal. The interatrial septum is intact wit h no evidence for an atrial septal defect. Saline bubble contrast intravenous injection does not demo nstrate PFO. Aortic Valve The aortic valve is normal in structure. Aortic valve is trileaflet. There is no aortic valvular sten osis. Trace aortic regurgitation. Mitral Valve Mild mitral annular calcification. No evidence of mitral valve stenosis. Mild mitral regurgitation. Tricuspid Valve The tricuspid valve is normal in structure. There is no tricuspid valve stenosis. Trace tricuspid reg urgitation. Unable to assess PA pressure. Pulmonic Valve The pulmonary valve is normal in structure. There is no pulmonic valvular stenosis. Trace pulmonic re gurgitation. Great Vessels The aortic root is normal in size. The ascending aorta is mildly dilated. Aortic arch is mildly dilat ed. IVC is normal in size and collapses >50% with inspiration. Pericardium There is no pericardial effusion. 2D Dimensions IVSD d PLAX 1.02 cm M: 0.6-1.2 LV Vol A2C d MOD 95.4 mL LVPW d PLAX 1.04 cm M: 0.6 - 1.2 LV Vol A4C d MOD 113.1 mL LVID d PLAX 4.89 cm M: 4.2 - 5.8 LA vol/ BSA A2C s A-L 22.4 mL/m2 LVDs 3.60 cm M: 2.5 - 4.0 LA vol/ BSA A4C s A-L 21.3 mL/m2 Ao Root d 3.46 cm M: 3.1 - 3.7 LA Vol/ BSA Biplane s A-L 22.8 mL/m2 Ao Asc Diam d 3.73 cm M: 2.6 - 3.4 LA Area A4C s MOD 15.56 cm2 LV EF Teichholz 50.3 % LA Area A2C s MOD 15.32 cm2 LVEF (Cosby's) 51.14 % M: 52 - 72 LV EF A4C MOD 50.5 % LV Volume 81.34 mL M: 62 - 150 LV EF A2C MOD 51.4 % LV Volume Index 43.03 mL/m2 M: 34 - 74 LV EF Biplane MOD 51.1 % LV Vol Biplane MOD 106.5 mL SV 54.46 mL FS 25.60 % SV Index 28.75 mL/m2 M-Mode TAPSE 1.92 cm (M/F) >1.7 LV Diastology MV E' medial 0.130 (>0.07 m/s) E/A Ratio 0.5 LV E/e MED 2.75 (<14) MV E Vmax 0.36 (0.4-1.3 m/s) MV E' lateral 0.069 (>0.1 m/s) MV A Vmax 0.75 (0.4-1.3 m/s) LV E/e LAT 5.15 (<14) MV E/A Ratio 0.48 MV E/E' medial 2.77 MV E/E' lateral 5.19 Aortic Valve LVOT Area 3.68 cm2 AoV Area Vmax 3.01 cm2 LVOT Vmax 1.04 m/s AoV Area/ BSA (Vmax) 1.59 cm2/m2 LVOT Mean Sergio. 0.76 m/s SHERYL Mean Sergio. 3.08 cm2 LVOT Peak Grad 4.3 mmHg SHERYL Mean Sergio. Index 1.63 cm2/m2 LVOT Mean Grad 2.5 mmHg AR DT 2455 msec LVOT VTI 0.212 m AR PHT 712 msec LVOT Diam s 2.15 cm AoV Vmax 1.27 m/s Velocity Ratio 0.81 AoV Mean Sergio. 0.91 m/s AoV Peak Grad 6.5 mmHg LVOT SV 77.96 mL AoV Mean Grad 3.7 mmHg AoV VTI 0.249 m AoV Area VTI 3.13 cm2 AoV Area/ BSA (VTI) 1.65 cm/m2 Mitral Valve MV DT 674 (160-240 msec) MV PHT 196 msec MV Area PHT 1.13 cm2 MV VTI 0.206 m MV Area VTI 3.79 (4.0-6.0 cm2) Pulmonary Valve PV Vmax 1.25 (0.5-1.5 m/s) RVOT Peak Gr. 2.45 mmHg PV Peak Grad 6.3 mmHg RVOT Mean Gr. 1.35 mmHg PV Mean Grad 3.8 mmHg RVOT VTI 0.150 m PV VTI 0.250 m RVOT Vmax 0.78 m/s
== END 2021-12-13 01:14 ==
PROVIDERS: PCP Nurse Practitioner; Visit Provider Nurse Practitioner
DX: H34.232 Retinal artery branch occlusion, left eye; I10 Essential (primary) hypertension; I77.810 Thoracic aortic ectasia
CPT/HCPCS: 93306

== ENCOUNTER 2022-01-08 02:48 | Outpatient (CLI) | payer MEDICARE, SELFPAY ==
[2022-01-08 14:28] LABS: Hemoglobin A1C 5.9 % (<5.7)
[2022-01-10 17:39] LABS: PSA, Ultrasensitive 0.03 ng/mL (<= 7.2)
== END 2022-01-08 02:49 | disposition home or self-care (01) ==
LOC: LBO 02:49
PROVIDERS: PCP Nurse Practitioner; Visit Provider Nurse Practitioner Family
DX: C61 Malignant neoplasm of prostate (principal); R73.09 Other abnormal glucose
CPT/HCPCS: 36415; 84153; 83036

== ENCOUNTER 2022-07-26 02:59 | Outpatient (CLI) | payer MEDICARE, SELFPAY ==
[2022-07-26 13:02] LABS: Anion Gap 7.5 mmol/L (3-11); BUN 19 mg/dL (7-18); CO2 27.5 mmol/L (21.0-32.0); CREATININE 1.3 mg/dL (0.70-1.30); Calcium 8.8 mg/dL (8.5-10.1); Chloride 104 mmol/L (98-107); Estimated GFR 55.53 (mL/min/1.73m2); Glucose 110 mg/dL (74-106); Potassium 3.9 mmol/L (3.5-5.1); Sodium 139 mmol/L (136-145)
[2022-07-27 17:49] LABS: PSA, Ultrasensitive 0.03 ng/mL (<= 7.2)
[2022-07-30 20:28] LABS: Testosterone, Total 494 ng/dL (240-950)
== END 2022-07-26 03:00 | disposition home or self-care (01) ==
LOC: LBO 02:59
PROVIDERS: Nurse Practitioner Family; PCP Family Medicine; Visit Provider Nurse Practitioner
DX: I10 Essential (primary) hypertension (principal); C61 Malignant neoplasm of prostate
CPT/HCPCS: 36415; 80048; 84153; 84403

== ENCOUNTER → 2022-09-25 08:45 | Outpatient (BNVA) | payer MEDICARE, SELFPAY | PROVIDERS: PCP Family Medicine; Referring Provider Nurse Practitioner; Visit Provider Internal Medicine Cardiovascular Disease | DX: I47.1 Supraventricular tachycardia (principal); I10 Essential (primary) hypertension | CPT/HCPCS: 99214 ==

== ENCOUNTER 2022-12-07 14:39 | Outpatient (CLI) | payer MEDICARE, SELFPAY ==
--- NOTE | 2022-12-07 14:15 | DI.RAD_ITS ---
Exam(s) XR LUMBAR SPINE COMPLETE EXAM: XR LUMBAR SPINE COMPLETE CLINICAL HISTORY: acute / chronic pain, rt sided sciatica, lumbago, M54.41, G89.29. TECHNIQUE: 2D digital imaging was performed of the lumbar spine. Five images were obtained. AP, la teral, right oblique, left oblique and L5-S1 spot views were obtained. COMPARISON: No exams were available for comparison FINDINGS: BONES: No fracture or destructive lesion. Endplate osteophytes are present at multiple levels of the lumbar spine. Degenerative facet arthropathy is seen at L4-5 and L5-S1. DISKS: There is disc space narrowing at T12-L1 and L1-L2. There is a vacuum disc at L1-L2. ALIGNMENT: Grade 1 anterolisthesis of L4 on L5 is seen. No spondylolysis is seen. SOFT TISSUE: Atherosclerosis is present. IMPRESSION: Degenerative changes in the lumbar spine. DATA REPOSITORY: RADIATION DOSE DELIVERED:
--- NOTE | 2022-12-07 14:15 | DI.RAD_ITS ---
Exam(s) XR HIP RT COMPLETE AP PELVIS EXAM: XR HIP RT COMPLETE AP PELVIS CLINICAL HISTORY: acute / chronic right pain, rt sided sciatica, lumbago, M54.51, G89.29. TECHNIQUE: 2D digital imaging was performed of the right hip. Two images were obtained. AP pelvis a nd lateral right hip views were obtained. COMPARISON: CR BILATERAL HIPS ADULT from 03/12/2011 FINDINGS: BONES: No acute fracture is present. No bony destructive lesion is seen. JOINTS: No dislocation present. There is narrowing of the right hip joint space. SOFT TISSUE: Atherosclerosis is present. IMPRESSION: Degenerative changes of the right hip. DATA REPOSITORY: RADIATION DOSE DELIVERED:
== END 2022-12-07 14:59 ==
LOC: DI 14:40
PROVIDERS: PCP Family Medicine; Visit Provider Family Medicine
DX: M47.816 Spondylosis without myelopathy or radiculopathy, lumbar region (principal); M16.11 Unilateral primary osteoarthritis, right hip; G89.29 Other chronic pain; M54.41 Lumbago with sciatica, right side
CPT/HCPCS: 72110; 73502

== ENCOUNTER 2023-02-28 01:51 | Outpatient (CLI) | payer MEDICARE, SELFPAY ==
[2023-03-01 16:13] LABS: PSA, Ultrasensitive 0.03 ng/mL (<= 7.2)
[2023-03-03 12:33] LABS: Testosterone, Total 533 ng/dL (240-950)
== END 2023-02-28 01:52 | disposition home or self-care (01) ==
LOC: LBO 01:51
PROVIDERS: PCP Family Medicine; Visit Provider Nurse Practitioner Family
DX: C61 Malignant neoplasm of prostate (principal)
CPT/HCPCS: 36415; 84153; 84403

== ENCOUNTER 2023-04-08 11:40 | Outpatient (CLI) | payer MEDICARE, SELFPAY ==
[2023-04-08 10:22] LABS: Abs Immature Grans 0.02 10^3/uL (0.0-0.06); Absolute Basophil Count 0.02 10^3/uL (0.0-0.2); Absolute Lymphocyte Count 1.25 10^3/uL (1.2-3.4); Absolute Monocyte Count 0.51 10^3/uL (0.1-0.8); Absolute Neutrophil Count 3.42 10^3/uL (1.2-6.7); Basophils % 0.4; Eosinophils % 1.9; HCT 44.4 % (40.0-50.0); HGB 14.7 g/dL (13.5-17.5); Immature Grans % 0.4; Lymphocytes % 23.5; MCH 32.1 pg (27.0-33.0); MCHC 33.1 % (32.0-36.0); MCV 97 fL (80-95); MPV 8.8 fL (8.0-11.0); Monocytes % 9.6; Neutrophils % 64.2; Platelet Count 148 10^3/uL (130-400); RBC 4.58 10^6/uL (4.36-5.78); RDW 13.4 % (11.8-14.1); RDW-SD 48.1 fL; WBC 5.32 10^3/uL (4.4-10.8)
[2023-04-08 12:16] LABS: ALT 25 U/L (16-63); AST 27 U/L (15-37); Albumin 3.5 g/dL (3.4-5.0); Alkaline Phosphatase 48 U/L (46-116); Anion Gap 7.5 mmol/L (3-11); BUN 21 mg/dL (7-18); Bilirubin, Total 0.7 mg/dL (0.2-1.0); CO2 27.5 mmol/L (21.0-32.0); CREATININE 1.1 mg/dL (0.70-1.30); Calcium 8.7 mg/dL (8.5-10.1); Chloride 104 mmol/L (98-107); Estimated GFR 67.44 (mL/min/1.73m2); Glucose 103 mg/dL (74-106); Potassium 4.2 mmol/L (3.5-5.1); Sodium 139 mmol/L (136-145); TSH (W/Ref FT4) 1.61 uIU/mL (0.36-3.74); Total Protein 7.2 g/dL (6.4-8.2)
[2023-04-09 11:41] LABS: Hemoglobin A1C 5.2 % (<5.7)
== END 2023-04-08 11:41 | disposition home or self-care (01) ==
LOC: LBO 11:40
PROVIDERS: PCP Family Medicine; Visit Provider Family Medicine
DX: E03.9 Hypothyroidism, unspecified (principal); R53.83 Other fatigue; R73.01 Impaired fasting glucose
CPT/HCPCS: 36415; 80053; 83036; 84443; 85025

== ENCOUNTER 2023-06-11 02:35 | Outpatient (CLI) | payer MEDICARE, SELFPAY ==
--- NOTE | 2023-06-11 07:30 | DI.US_ITS ---
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 Maximum diameter of the abdominal aorta is 2.9 cm, proximally. Distally it tapers to 2.5 cm. Maximum diameter of the common iliac arteries is 1.4-1.5 cm. IMPRESSION: No evidence of significant abdominal aortic aneurysm. DATA REPOSITORY:
== END 2023-06-11 02:55 ==
PROVIDERS: PCP Family Medicine; Visit Provider Family Medicine
DX: I70.0 Atherosclerosis of aorta (principal)
CPT/HCPCS: 76706

== ENCOUNTER 2023-06-18 13:11 | Outpatient (CLI) | payer MEDICARE, SELFPAY ==
[2023-06-20 14:50] LABS: PSA, Ultrasensitive 0.03 ng/mL (<= 7.2)
[2023-06-22 14:58] LABS: Testosterone, Total 524 ng/dL (240-950)
== END 2023-06-18 13:12 | disposition home or self-care (01) ==
LOC: LBO 13:12
PROVIDERS: PCP Family Medicine; Visit Provider Nurse Practitioner Family
DX: C61 Malignant neoplasm of prostate (principal)
CPT/HCPCS: 36415; 84153; 84403

== ENCOUNTER 2023-07-31 14:04 | Outpatient (REF) | payer MEDICARE, SELFPAY | END 2023-07-31 14:05 | disposition home or self-care (01) | LOC: LBN 14:04 | PROVIDERS: PCP Family Medicine; Visit Provider Student in an Organized Health Care Education/Training Program | DX: R05.8 Other specified cough (principal); J45.909 Unspecified asthma, uncomplicated; R09.3 Abnormal sputum | CPT/HCPCS: 87070; 87205 ==

== ENCOUNTER → 2023-08-05 02:43 | Outpatient (CLI) | payer MEDICARE, SELFPAY ==
--- NOTE | 2023-08-05 07:15 | DI.RAD_ITS ---
Exam(s) XR CHEST 2V PA LATERAL EXAM: XR CHEST 2V PA LATERAL CLINICAL HISTORY: increased productive cough,ASTHMA,R05.9,J45.909 TECHNIQUE: 2D digital imaging was performed. COMPARISON: CR XR CHEST 2V PA LATERAL from 11/28/2021 FINDINGS: HEART: Mildly enlarged. Aorta: Not dilated. PULMONARY VASCULATURE: Normal. LUNGS: New density seen posteriorly to the heart on the lateral view suspicious for pneumonia. PLEURAL SPACE: No pleural effusion or pneumothorax. BONE:Degenerative changes and scoliosis at the lumbosacral junction. Stable mild midthoracic gia swetha fracture. IMPRESSION: Left lower lobe infiltrate. DATA REPOSITORY: RADIATION DOSE DELIVERED:
== END ==
PROVIDERS: PCP Family Medicine; Visit Provider Student in an Organized Health Care Education/Training Program
DX: R91.8 Other nonspecific abnormal finding of lung field (principal); R05.9 Cough, unspecified
CPT/HCPCS: 71046

== ENCOUNTER 2023-08-22 08:33 | Outpatient (CLI) | payer MEDICARE, SELFPAY | END 2023-08-22 08:34 | disposition home or self-care (01) | PROVIDERS: PCP Family Medicine; Visit Provider Family Medicine | DX: R00.2 Palpitations (principal) | CPT/HCPCS: 93246 ==

== ENCOUNTER 2023-08-30 19:01 | Outpatient (CLI) | payer MEDICARE, SELFPAY ==
[2023-08-30 10:30] LABS: ALT 29 U/L (16-63); AST 26 U/L (15-37); Albumin 3.3 g/dL (3.4-5.0); Alkaline Phosphatase 51 U/L (46-116); Anion Gap 6.4 mmol/L (3-11); BUN 18 mg/dL (7-18); Bilirubin, Total 0.4 mg/dL (0.2-1.0); CO2 27.6 mmol/L (21.0-32.0); CREATININE 1.2 mg/dL (0.70-1.30); Calcium 9.1 mg/dL (8.5-10.1); Chloride 106 mmol/L (98-107); Estimated GFR 60.75 (mL/min/1.73m2); Glucose 103 mg/dL (74-106); Potassium 3.9 mmol/L (3.5-5.1); Sodium 140 mmol/L (136-145); Total Protein 7.1 g/dL (6.4-8.2)
== END 2023-08-30 19:02 | disposition home or self-care (01) ==
LOC: LBO 19:02
PROVIDERS: PCP Family Medicine; Visit Provider Family Medicine
DX: I10 Essential (primary) hypertension (principal); R74.8 Abnormal levels of other serum enzymes; Z00.00 Encounter for general adult medical examination without abnormal findings
CPT/HCPCS: 36415; 80053

== ENCOUNTER 2023-09-13 13:08 | Outpatient (CLI) | payer MEDICARE, SELFPAY ==
--- NOTE | 2023-09-13 13:48 | W.CARDEVENT ---
Date of service: 09/13/23 Time of Service: 13:49 Cardiac Event Recorder Referring Provider:: Hoa Campbell Indications:: Palpitations Cardiac Event Note: This is a cardiac event monitor. Patient was monitored for 10 days and 7 hours Rhythm throughout was sinus with an average heart rate of 64. Minimum was 46, maximum 121 There were very rare isolated ventricular ectopic beats There were occasional atrial premature beats. A total of 3 self-limited atrial runs occurred. The longest of these was 6 beats in duration There was no atrial fibrillation, no high-grade AV block, no pauses greater than 3 seconds Patient's symptoms were reported which had no correlation with any dysrhythmia
== END 2023-09-13 13:09 | disposition home or self-care (01) ==
LOC: CARDOPNVT 13:08
PROVIDERS: PCP Family Medicine; Visit Provider Internal Medicine Cardiovascular Disease
DX: R00.2 Palpitations (principal); I49.1 Atrial premature depolarization
CPT/HCPCS: 93248

== ENCOUNTER 2023-09-24 07:59 | Outpatient (CLI) | payer MEDICARE, SELFPAY ==
--- NOTE | 2023-09-24 07:45 | RT.EKG_ITS ---
APPROVED REPORT Exam: Resting ECG Reason for Exam: SVT Patient Location: O HR:77 bpm ECG Measurements Heart Rate 77 AXIS VT 222 P 31 QRSd 165 QRS -45 QT 416 T -19 QTc 471 Conclusion Sinus rhythm...normal P axis, V-rate 50- 99 Prolonged VT interval...VT >220, V-rate 50- 90 Right bundle branch block...QRSd>120, terminal axis(90,270)
== END 2023-09-24 08:00 | disposition home or self-care (01) ==
LOC: DI.CARD 07:59
PROVIDERS: PCP Family Medicine; Visit Provider Internal Medicine Cardiovascular Disease
DX: I47.10 Supraventricular tachycardia, unspecified (principal)
CPT/HCPCS: 93010

== ENCOUNTER → 2023-09-24 08:47 | Outpatient (BNVA) | payer MEDICARE, SELFPAY | PROVIDERS: PCP Family Medicine; Referring Provider Family Medicine; Visit Provider Internal Medicine Cardiovascular Disease | DX: I47.10 Supraventricular tachycardia, unspecified (principal); I10 Essential (primary) hypertension | CPT/HCPCS: 93005; 99213 ==

== ENCOUNTER → 2023-10-04 08:48 | Outpatient (BNVA) | payer MEDICARE, SELFPAY | PROVIDERS: PCP Family Medicine; Referring Provider Family Medicine; Visit Provider Student in an Organized Health Care Education/Training Program | DX: J45.50 Severe persistent asthma, uncomplicated (principal); Z79.51 Long term (current) use of inhaled steroids; I10 Essential (primary) hypertension | CPT/HCPCS: 99214 ==

== ENCOUNTER → 2023-12-10 10:17 | Outpatient (BNVA) | payer MEDICARE, SELFPAY | PROVIDERS: PCP Family Medicine; Referring Provider Family Medicine; Visit Provider Student in an Organized Health Care Education/Training Program | DX: J45.50 Severe persistent asthma, uncomplicated (principal); R05.9 Cough, unspecified | CPT/HCPCS: 99214 ==

== ENCOUNTER 2023-12-25 14:27 | Outpatient (CLI) | payer MEDICARE, SELFPAY ==
[2023-12-27 15:26] LABS: PSA, Ultrasensitive 0.04 ng/mL (<= 7.2)
== END 2023-12-25 14:28 | disposition home or self-care (01) ==
LOC: LBO 14:27
PROVIDERS: PCP Family Medicine; Visit Provider Nurse Practitioner
DX: C61 Malignant neoplasm of prostate (principal)
CPT/HCPCS: 36415; 84153

== ENCOUNTER 2024-01-30 15:02 | Outpatient (REF) | payer MEDICARE, SELFPAY ==
[2024-01-30 14:52] LABS: C Diff PCR Negative (Negative)
== END 2024-01-30 15:03 | disposition home or self-care (01) ==
LOC: LBN 15:02
PROVIDERS: PCP Family Medicine; Visit Provider Physician Assistant Medical
DX: K51.311 Ulcerative (chronic) rectosigmoiditis with rectal bleeding (principal)
CPT/HCPCS: 87329; 87493

== ENCOUNTER 2024-02-07 17:09 | Outpatient (REF) | payer MEDICARE, SELFPAY ==
[2024-02-09 22:40] LABS: Campylobacter PCR Negative (Negative); Salmonella PCR Negative (Negative); Shiga Toxin PCR Negative (Negative); Shigella/Enteroinvasive Ecoli Negative (Negative)
[2024-02-12 19:12] LABS: Calprotectin 748 mcg/g
== END 2024-02-07 17:10 | disposition home or self-care (01) ==
LOC: LBN 17:09
PROVIDERS: PCP Family Medicine; Visit Provider Nurse Practitioner Adult Health
DX: K51.311 Ulcerative (chronic) rectosigmoiditis with rectal bleeding (principal)
CPT/HCPCS: 87505; 83993

== ENCOUNTER 2024-05-05 04:58 | Outpatient (CLI) | payer MEDICARE, SELFPAY ==
[2024-05-05 12:51] LABS: Abs Immature Grans 0.07 10^3/uL (0.0-0.06); Absolute Basophil Count 0.03 10^3/uL (0.0-0.2); Absolute Eosinophil Count 0.07 10^3/uL (0.0-0.7); Absolute Lymphocyte Count 1.34 10^3/uL (1.2-3.4); Absolute Monocyte Count 0.62 10^3/uL (0.1-0.8); Absolute Neutrophil Count 3.24 10^3/uL (1.2-6.7); Basophils % 0.6 %; Eosinophils % 1.3 %; HCT 44.6 % (40.0-50.0); HGB 14.6 g/dL (13.5-17.5); Immature Grans % 1.3 %; MCH 32.2 pg (27.0-33.0); MCHC 32.7 % (32.0-36.0); MCV 99 fL (80-95); MPV 8.6 fL (8.0-11.0); Monocytes % 11.5 %; Neutrophils % 60.3 %; Platelet Count 186 10^3/uL (130-400); RBC 4.53 10^6/uL (4.36-5.78); RDW 13.9 % (11.8-14.1); RDW-SD 51.2 fL; WBC 5.37 10^3/uL (4.4-10.8)
[2024-05-05 14:12] LABS: ALT 66 U/L (16-63); AST 47 U/L (15-37); Albumin 3.5 g/dL (3.4-5.0); Alkaline Phosphatase 44 U/L (46-116); Anion Gap 8.8 mmol/L (3-11); BUN 18 mg/dL (7-18); Bilirubin, Total 0.5 mg/dL (0.2-1.0); CO2 28.2 mmol/L (21.0-32.0); CREATININE 1.2 mg/dL (0.70-1.30); Calcium 8.7 mg/dL (8.5-10.1); Chloride 106 mmol/L (98-107); Estimated GFR 60.38 (mL/min/1.73m2); Glucose 101 mg/dL (74-106); Potassium 4.1 mmol/L (3.5-5.1); Sodium 143 mmol/L (136-145); TSH (W/Ref FT4) 1.96 uIU/mL (0.36-3.74); Total Protein 6.8 g/dL (6.4-8.2)
== END 2024-05-05 04:59 | disposition home or self-care (01) ==
LOC: LBO 04:58
PROVIDERS: PCP Family Medicine; Visit Provider Family Medicine
DX: Z00.00 Encounter for general adult medical examination without abnormal findings (principal); R53.83 Other fatigue; E03.9 Hypothyroidism, unspecified
CPT/HCPCS: 36415; 80053; 84443; 85025

== ENCOUNTER → 2024-05-13 12:45 | Outpatient (BNVA) | payer MEDICARE, SELFPAY | PROVIDERS: PCP Family Medicine; Referring Provider Family Medicine; Visit Provider Physician Assistant Surgical | DX: J45.50 Severe persistent asthma, uncomplicated (principal); R05.9 Cough, unspecified | CPT/HCPCS: 99214 ==

== ENCOUNTER 2024-05-20 09:05 | Outpatient (REF) | payer MEDICARE, SELFPAY ==
[2024-05-20 23:57] LABS: Campylobacter PCR Negative (Negative); Salmonella PCR Negative (Negative); Shiga Toxin PCR Negative (Negative); Shigella/Enteroinvasive Ecoli Negative (Negative)
[2024-05-23 16:05] LABS: Calprotectin 141 mcg/g
== END 2024-05-20 09:06 | disposition home or self-care (01) ==
LOC: LBN 09:05
PROVIDERS: PCP Family Medicine; Visit Provider Nurse Practitioner Adult Health
DX: K51.311 Ulcerative (chronic) rectosigmoiditis with rectal bleeding (principal)
CPT/HCPCS: 87505; 83993

== ENCOUNTER → 2024-06-09 09:19 | Outpatient (BNVA) | payer MEDICARE, SELFPAY | PROVIDERS: PCP Family Medicine; Referring Provider Family Medicine; Visit Provider Internal Medicine Critical Care Medicine | DX: J45.50 Severe persistent asthma, uncomplicated (principal); K21.9 Gastro-esophageal reflux disease without esophagitis | CPT/HCPCS: 99213 ==

== ENCOUNTER 2024-07-28 15:36 | Outpatient (CLI) | payer MEDICARE, SELFPAY ==
[2024-07-28 14:41] LABS: Abs Immature Grans 0.05 10^3/uL (0.0-0.06); Absolute Basophil Count 0.02 10^3/uL (0.0-0.2); Absolute Eosinophil Count 0.03 10^3/uL (0.0-0.7); Absolute Lymphocyte Count 1.59 10^3/uL (1.2-3.4); Absolute Monocyte Count 0.53 10^3/uL (0.1-0.8); Absolute Neutrophil Count 4.47 10^3/uL (1.2-6.7); Basophils % 0.3 %; Eosinophils % 0.4 %; HCT 46.5 % (40.0-50.0); HGB 15.3 g/dL (13.5-17.5); Immature Grans % 0.7 %; Lymphocytes % 23.8 %; MCH 32.3 pg (27.0-33.0); MCHC 32.9 % (32.0-36.0); MCV 98 fL (80-95); MPV 8.6 fL (8.0-11.0); Monocytes % 7.9 %; Neutrophils % 66.9 %; Platelet Count 138 10^3/uL (130-400); RBC 4.74 10^6/uL (4.36-5.78); RDW 13.1 % (11.8-14.1); RDW-SD 47.8 fL; WBC 6.69 10^3/uL (4.4-10.8)
[2024-07-28 15:05] LABS: ESR 3 mm/hr (0-20)
[2024-07-28 15:39] LABS: ALT 58 U/L (16-63); AST 29 U/L (15-37); Albumin 3.3 g/dL (3.4-5.0); Alkaline Phosphatase 43 U/L (46-116); Anion Gap 7.4 mmol/L (3-11); BUN 23 mg/dL (7-18); Bilirubin, Total 0.48 mg/dL (0.2-1.0); CO2 28.6 mmol/L (21.0-32.0); CREATININE 1.4 mg/dL (0.70-1.30); Calcium 8.8 mg/dL (8.5-10.1); Chloride 106 mmol/L (98-107); Estimated GFR 50.18 (mL/min/1.73m2); Glucose 145 mg/dL (74-106); Potassium 4.2 mmol/L (3.5-5.1); Sodium 142 mmol/L (136-145); Total Protein 6.6 g/dL (6.4-8.2)
== END 2024-07-28 15:37 | disposition home or self-care (01) ==
LOC: LBO 15:38
PROVIDERS: PCP Family Medicine; Visit Provider Nurse Practitioner Adult Health
DX: K52.9 Noninfective gastroenteritis and colitis, unspecified (principal)
CPT/HCPCS: 36415; 80053; 85652; 85025

== ENCOUNTER 2024-07-29 18:31 | Outpatient (REF) | payer MEDICARE, SELFPAY ==
[2024-07-31 21:59] LABS: Calprotectin 62.8 mcg/g
== END 2024-07-29 18:32 | disposition home or self-care (01) ==
LOC: LBN 18:31
PROVIDERS: PCP Family Medicine; Visit Provider Nurse Practitioner Adult Health
DX: K52.9 Noninfective gastroenteritis and colitis, unspecified (principal)
CPT/HCPCS: 83993

== ENCOUNTER 2024-09-10 02:00 | Outpatient (CLI) | payer MEDICARE, SELFPAY ==
--- NOTE | 2024-09-10 12:30 | DI.US_ITS ---
APPROVED REPORT EXAM: Comprehensive 2D, Doppler, and color-flow Echocardiogram Patient Location: Out-Patient Csr: Mary Ortiz RDCS (AE) Indications: New A Fib Other Information Study Quality: Fair. Technically limited study due to body habitus. Conclusion Technically difficult but adequate study Normal left ventricular wall thickness and chamber size. Ejection fraction is 50 to 55%. No segment al wall motion abnormalities are identified Right ventricle appears normal in size Both atria are normal in size Trileaflet aortic valve with mild regurgitation Mild mitral annular calcification, mild regurgitation Ascending aorta measures 3.56 cm Patient was in sinus rhythm throughout the study Wall motion Left Ventricle The left ventricle is normal size. The overall left ventricular systolic function appears normal. The re is normal left ventricular wall thickness. Regional wall motion is not well visualized but grossly normal. There is no ventricular septal defect visualized. LVEF is 50-55% Right Ventricle Right ventricle is not well visualized but does not appear enlarged Right ventricular systolic functi on could not be assessed. Atria The left atrium size is normal. The right atrium size is normal. The interatrial septum is intact wit h no evidence for an atrial septal defect. Aortic Valve The aortic valve is normal in structure. Aortic valve is trileaflet. There is no aortic valvular sten osis. Mild aortic regurgitation. Mitral Valve Mild mitral annular calcification. No evidence of mitral valve stenosis. Mild mitral regurgitation. Tricuspid Valve The tricuspid valve is normal in structure. There is no tricuspid valve stenosis. Trace tricuspid reg urgitation. Unable to assess PA pressure. Pulmonic Valve The pulmonary valve is normal in structure. There is no pulmonic valvular stenosis. Trace pulmonic re gurgitation. Great Vessels The aortic root is normal in size. The ascending aorta is mildly dilated. Aortic arch is not well vis ualized. IVC is normal in size and collapses >50% with inspiration. Pericardium There is no pericardial effusion. 2D Dimensions IVSD d PLAX 1.01 cm M: 0.6-1.2 Ao Root d 3.53 cm M: 3.1 - 3.7 LVPW d PLAX 1.03 cm M: 0.6 - 1.2 Ao Asc Diam d 3.56 cm M: 2.6 - 3.4 LVID d PLAX 5.23 cm M: 4.2 - 5.8 LVDs 4.03 cm M: 2.5 - 4.0 LV EF Teichholz 45.6 % FS 22.90 % LV EDV (Teich) 131.3 mL LV ESV (Teich) 71.4 mL Auto EF LV EDV A4C 125.3 mL LV EDV A2C 108.1 mL LV EDV BP 116.4 mL LV ESV A4C 67.7 mL LV ESV A2C 58.6 mL LV ESV BP 63.8 mL LVEF(%) A4C 46.0 % LVEF(%) A2C 45.8 % LVEF(%) BP 45.2 % LV SV A4C 57.7 ml LV SV A2C 49.5 ml LV SV BP 52.6 ml LV CO A4C 3.0 L/min LV CO A2C 3.3 L/min LV CO BP 3.2 L/min HR A4C 52.33 BPM HR A2C 66.42 BPM LV EDV Index (BP) LA Volume LA Length A4C 4.7 cm LA Length A2C 5.1 cm LA Area A4C s 12.62 cm2 LA Area A2C s 18.07 cm2 LA Vol A4C A-L 28.83 mL LA Vol A2C A-L 54.55 mL LA Vol Biplane A-L 41.3 mL LA Vol/BSA A4C A-L LA Vol/BSA A2C A-L LA Vol/BSA BP A-L 21.4 mL/m2 LA Vol A4C MOD 26.7 mL LA Vol A2C MOD 49.8 mL LA Vol BP MOD 37.9 mL LV Diastology MV E' lateral 0.067 (>0.1 m/s) MV E Vmax 0.38 (0.4-1.3 m/s) MV E/E' LAT 5.74 (<14) MV A Vmax 0.85 (0.4-1.3 m/s) E/A Ratio 0.4 Aortic Valve AoV Vmax 0.99 m/s LVOT Vmax 0.73 m/s AoV Peak Grad 34.7 mmHg LVOT Peak Grad 2.2 mmHg AoV Area (Vmax) 2.44 cm2 LVOT VTI 0.126 m AoV VTI 0.182 m LVOT Mean Grad 1.2 mmHg AoV Mean Sergio. 0.78 m/s LVOT SV 41.65 mL AoV Mean Grad 2.6 mmHg LVOT Diam s 2.00 cm AoV Area (VTI) 2.29 cm2 AV Regurg Peak Gr. 3.94 mmHg Velocity Ratio 0.74 AR Decel Jay 1.2m/sec2 AR DT 3445 msec AR PHT 999 msec AR Vmax 4.05 m/s Mitral Valve MV DT 378 (160-240 msec) MV Vmax TIPS 0.98 m/s MV Mean Grad 0.8 (<2mmHg) MV VTI 0.227 m Pulmonary Valve PV Vmax 0.85 (0.5-1.5 m/s) RVOT Vmax 0.70 m/s PV Peak Grad 2.9 mmHg RVOT Peak Gr. 1.9 mmHg PV Mean Sergio 0.66 m/s RVOT VTI 0.131 m PV Mean Grad 1.9 mmHg RVOT Mean Gr. 1.0 mmHg Tricuspid Valve RA Pressure 3.00 mmHg
== END 2024-09-10 02:20 ==
LOC: DI 02:00
PROVIDERS: PCP Family Medicine; Visit Provider Family Medicine
DX: I48.91 Unspecified atrial fibrillation (principal)
CPT/HCPCS: 93306

== ENCOUNTER 2024-10-01 09:07 | Outpatient (RCR) | payer MEDICARE, SELFPAY ==
--- NOTE | 2024-10-05 12:35 | W.CARDEVENT ---
Date of service: 10/05/24 Time of Service: 12:35 Cardiac Event Recorder Referring Provider:: Hoa Campbell Indications:: Unspecified atrial fibrillation Cardiac Event Note: This is a 48-hour Holter monitor. Rhythm throughout was sinus with an average heart rate of 76. Minimum was 53, maximum 107 There were occasional to frequent ventricular ectopic beats There were occasional to frequent atrial premature beats There was no atrial fibrillation, no high-grade AV block, no pauses greater than 3 seconds No symptoms were reported
== END 2024-10-17 23:59 | disposition home or self-care (01) ==
LOC: CARDOPNVT 09:07
PROVIDERS: PCP Family Medicine; Visit Provider Internal Medicine Cardiovascular Disease
DX: I48.91 Unspecified atrial fibrillation (principal)
CPT/HCPCS: 93227; 93225; 93226

== ENCOUNTER → 2024-10-21 11:01 | Outpatient (BNVA) | payer MEDICARE, SELFPAY | PROVIDERS: PCP Family Medicine; Referring Provider Family Medicine; Visit Provider Physician Assistant Surgical | DX: R06.02 Shortness of breath (principal); J45.50 Severe persistent asthma, uncomplicated; R05.9 Cough, unspecified | CPT/HCPCS: 99214 ==

== ENCOUNTER 2024-11-25 10:43 | Outpatient (CLI) | payer MEDICARE, SELFPAY ==
[2024-11-25 10:23] LABS: Bilirubin Negative (Negative); Blood Negative (Negative); Clarity Clear (Clear); Glucose Negative (Negative); Ketones Negative (Negative); Leukocyte Esterase Negative (Negative); Nitrite Negative (Negative); Specific Gravity 1.025 (1.005-1.025); Urobilinogen 0.2 mg/dL (Up to 0.2); pH 5.5 (5-8)
[2024-11-25 11:04] LABS: ALT 46 U/L (16-63); AST 29 U/L (15-37); Albumin 3.2 g/dL (3.4-5.0); Alkaline Phosphatase 46 U/L (46-116); Anion Gap 9.2 mmol/L (3-11); BUN 20 mg/dL (7-18); Bilirubin, Total 0.72 mg/dL (0.2-1.0); CO2 28.8 mmol/L (21.0-32.0); CREATININE 1.4 mg/dL (0.70-1.30); Calcium 9.2 mg/dL (8.5-10.1); Chloride 114 mmol/L (98-107); Estimated GFR 50.18 (mL/min/1.73m2); Glucose 127 mg/dL (74-106); Magnesium 2.2 mg/dL (1.8-2.4); Potassium 3.4 mmol/L (3.5-5.1); Sodium 152 mmol/L (136-145); TSH (W/Ref FT4) 1.25 uIU/mL (0.36-3.74); Total Protein 6.6 g/dL (6.4-8.2)
== END 2024-11-25 10:44 | disposition home or self-care (01) ==
LOC: LBO 10:50
PROVIDERS: PCP Family Medicine; Visit Provider Family Medicine
DX: I48.91 Unspecified atrial fibrillation (principal); R60.0 Localized edema; Z00.00 Encounter for general adult medical examination without abnormal findings; E03.9 Hypothyroidism, unspecified
CPT/HCPCS: 36415; 80053; 81003; 83735; 84443

== ENCOUNTER 2024-12-07 11:18 | Outpatient (CLI) | payer MEDICARE, SELFPAY ==
[2024-12-07 17:41] LABS: HBs Antibody, Quant <3.1 mIU/mL (See Note); Hepatitis B Surface Ab Negative (See Note)
[2024-12-07 17:51] LABS: Hepatitis B Surface Ag Negative (Negative)
[2024-12-07 18:28] LABS: Hep B Core Antibody Negative (Negative)
[2024-12-09 12:03] LABS: TB Interpretation Negative (Negative); TB1 Ag minus Nil 0.04 IU/mL; TB2 Ag minus Nil 0.05 IU/mL
== END 2024-12-07 11:19 | disposition home or self-care (01) ==
LOC: LBO 11:19
PROVIDERS: PCP Family Medicine; Visit Provider Internal Medicine Gastroenterology
DX: K51.918 Ulcerative colitis, unspecified with other complication (principal)
CPT/HCPCS: 36415; 86704; 86706; 87340; 86480

== ENCOUNTER 2024-12-16 09:50 | Outpatient (CLI) | payer MEDICARE, SELFPAY ==
[2024-12-18 11:39] LABS: PSA, Ultrasensitive 0.06 ng/mL (<= 7.2)
== END 2024-12-16 09:51 | disposition home or self-care (01) ==
LOC: LBO 09:50
PROVIDERS: PCP Family Medicine; Visit Provider Physician Assistant
DX: C61 Malignant neoplasm of prostate (principal)
CPT/HCPCS: 36415; 84153

== ENCOUNTER 2025-01-25 13:55 | Outpatient (REF) | payer MEDICARE, SELFPAY ==
[2025-01-26 14:02] LABS: C Diff PCR Negative (Negative)
[2025-01-26 23:14] LABS: Campylobacter PCR Negative (Negative); Salmonella PCR Negative (Negative); Shiga Toxin PCR Negative (Negative); Shigella/Enteroinvasive Ecoli Negative (Negative)
[2025-01-28 22:17] LABS: Calprotectin 828 mcg/g
== END 2025-01-25 13:56 | disposition home or self-care (01) ==
LOC: LBN 13:55
PROVIDERS: Visit Provider Internal Medicine Gastroenterology
DX: K51.918 Ulcerative colitis, unspecified with other complication
CPT/HCPCS: 87493; 87505; 83993

== ENCOUNTER 2025-01-27 14:05 | Outpatient (CLI) | payer MEDICARE, SELFPAY ==
[2025-01-27 12:25] LABS: ESR 2 mm/hr (0-20)
[2025-01-27 12:26] LABS: Abs Immature Grans 0.11 10^3/uL (0.0-0.06); Absolute Basophil Count 0.02 10^3/uL (0.0-0.2); Absolute Eosinophil Count 0.01 10^3/uL (0.0-0.7); Absolute Lymphocyte Count 1.27 10^3/uL (1.2-3.4); Absolute Neutrophil Count 5.76 10^3/uL (1.2-6.7); Basophils % 0.3 %; Eosinophils % 0.1 %; HCT 43.3 % (40.0-50.0); HGB 14.3 g/dL (13.5-17.5); Immature Grans % 1.4 %; Lymphocytes % 16.3 %; MCH 32.9 pg (27.0-33.0); MCV 100 fL (80-95); MPV 8.9 fL (8.0-11.0); Monocytes % 7.7 %; Neutrophils % 74.2 %; Platelet Count 147 10^3/uL (130-400); RBC 4.34 10^6/uL (4.36-5.78); RDW 12.7 % (11.8-14.1); RDW-SD 46.7 fL; WBC 7.77 10^3/uL (4.4-10.8)
[2025-01-27 12:51] LABS: ALT 46 U/L (16-63); AST 27 U/L (15-37); Albumin 3.3 g/dL (3.4-5.0); Alkaline Phosphatase 42 U/L (46-116); Anion Gap 6.3 mmol/L (3-11); BUN 20 mg/dL (7-18); Bilirubin, Total 0.6 mg/dL (0.2-1.0); C-Reactive Protein < 0.50 mg/dL (<or=0.5); CO2 27.7 mmol/L (21.0-32.0); CREATININE 1.1 mg/dL (0.70-1.30); Chloride 109 mmol/L (98-107); Estimated GFR 66.61 (mL/min/1.73m2); Glucose 122 mg/dL (74-106); Potassium 3.2 mmol/L (3.5-5.1); Sodium 143 mmol/L (136-145); Total Protein 6.7 g/dL (6.4-8.2)
== END 2025-01-27 14:06 | disposition home or self-care (01) ==
LOC: LBO 14:11
PROVIDERS: Visit Provider Internal Medicine Gastroenterology
DX: R19.7 Diarrhea, unspecified (principal); K51.918 Ulcerative colitis, unspecified with other complication
CPT/HCPCS: 36415; 80053; 85652; 85025; 86140; 93971

== ENCOUNTER 2025-01-27 14:11 | Outpatient (CLI) | payer MEDICARE, SELFPAY ==
--- NOTE | 2025-01-27 | DI.US_ITS ---
Exam(s) US LOWER EXTREMITY VENOUS LT EXAM: US LOWER EXTREMITY VENOUS LT CLINICAL HISTORY: SWELLING LT LOWER LEG, PAIN,? DVT,M79.662 TECHNIQUE: Left lower extremity venous ultrasound performed using grayscale, color-flow, and spectra l Doppler analysis. COMPARISON: No exams were available for comparison FINDINGS: There is hypoechoic thrombus seen in the proximal femoral vein measuring 2.3 cm in length. There is hypoechoic thrombus seen in the popliteal vein measuring 3.2 cm in length. There is also thrombus se en in the left peroneal vein measuring 3.7 cm in length. The visualized portions of the common femor al, greater saphenous vein, deep femoral vein and the mid and distal femoral veins are patent. The v isualized posterior tibial vein is patent. The saphenofemoral junction is unremarkable. There is no evidence of a Oneill cyst. The soft tissues are unremarkable. IMPRESSION: DVT of the left lower extremity as described above. DATA REPOSITORY:
== END 2025-01-27 14:31 ==
LOC: DI 14:12
PROVIDERS: Visit Provider Family Medicine
DX: M79.662 Pain in left lower leg (principal)
CPT/HCPCS: 93971

== ENCOUNTER 2025-02-16 13:53 | Outpatient (REF) | payer MEDICARE, OTHER, SELFPAY ==
[2025-02-16 16:13] LABS: Abs Immature Grans 0.06 10^3/uL (0.0-0.06); Absolute Basophil Count 0.03 10^3/uL (0.0-0.2); Absolute Eosinophil Count 0.05 10^3/uL (0.0-0.7); Absolute Lymphocyte Count 0.77 10^3/uL (1.2-3.4); Absolute Monocyte Count 0.46 10^3/uL (0.1-0.8); Absolute Neutrophil Count 5.01 10^3/uL (1.2-6.7); Basophils % 0.5 %; Eosinophils % 0.8 %; HCT 40.3 % (40.0-50.0); HGB 13.4 g/dL (13.5-17.5); Immature Grans % 0.9 %; Lymphocytes % 12.1 %; MCH 32.6 pg (27.0-33.0); MCHC 33.3 % (32.0-36.0); MCV 98 fL (80-95); MPV 9.6 fL (8.0-11.0); Monocytes % 7.2 %; Neutrophils % 78.5 %; Platelet Count 144 10^3/uL (130-400); RBC 4.11 10^6/uL (4.36-5.78); RDW 13.2 % (11.8-14.1); RDW-SD 47.9 fL; WBC 6.38 10^3/uL (4.4-10.8)
[2025-02-16 16:46] LABS: Anion Gap 7.1 mmol/L (3-11); BUN 15 mg/dL (7-18); CO2 27.9 mmol/L (21.0-32.0); CREATININE 1.2 mg/dL (0.70-1.30); Calcium 8.7 mg/dL (8.5-10.1); Chloride 109 mmol/L (98-107); Glucose 174 mg/dL (74-106); Potassium 3.3 mmol/L (3.5-5.1); Sodium 144 mmol/L (136-145); TSH 1.32 uIU/mL (0.36-3.74)
[2025-02-16 17:51] LABS: Iron 73 ug/dL (65-175); Total Iron Binding Capacity 224 ug/dL (250-450)
== END 2025-02-16 13:54 | disposition home or self-care (01) ==
LOC: NCHCN 13:53
PROVIDERS: PCP Family Medicine; Visit Provider Family Medicine
DX: Z00.00 Encounter for general adult medical examination without abnormal findings (principal)
CPT/HCPCS: 80048; 83540; 83550; 84443; 85025

== ENCOUNTER 2025-03-10 12:53 | Outpatient (CLI) | payer MEDICARE, OTHER, SELFPAY ==
[2025-03-10 15:54] LABS: Abs Immature Grans 0.08 10^3/uL (0.0-0.06); Absolute Basophil Count 0.03 10^3/uL (0.0-0.2); Absolute Eosinophil Count 0.04 10^3/uL (0.0-0.7); Absolute Lymphocyte Count 1.53 10^3/uL (1.2-3.4); Absolute Neutrophil Count 4.66 10^3/uL (1.2-6.7); Basophils % 0.4 %; Eosinophils % 0.6 %; HCT 43.3 % (40.0-50.0); HGB 14.5 g/dL (13.5-17.5); Immature Grans % 1.2 %; MCH 32.9 pg (27.0-33.0); MCHC 33.5 % (32.0-36.0); MCV 98 fL (80-95); Monocytes % 8.6 %; Neutrophils % 67.2 %; Platelet Count 196 10^3/uL (130-400); RBC 4.41 10^6/uL (4.36-5.78); RDW 13.2 % (11.8-14.1); WBC 6.94 10^3/uL (4.4-10.8)
[2025-03-10 16:43] LABS: ALT 54 U/L (16-63); AST 34 U/L (15-37); Albumin 3.3 g/dL (3.4-5.0); Alkaline Phosphatase 51 U/L (46-116); Bilirubin, Direct 0.1 mg/dL (0.0-0.2); Bilirubin, Total 0.6 mg/dL (0.2-1.0); Total Protein 6.7 g/dL (6.4-8.2)
[2025-03-10 16:51] LABS: C-Reactive Protein < 0.50 mg/dL (<or=0.5)
== END 2025-03-10 12:54 | disposition home or self-care (01) ==
LOC: LBO 03-11 12:54
PROVIDERS: PCP Family Medicine; Visit Provider Internal Medicine Gastroenterology
DX: Z79.899 Other long term (current) drug therapy (principal); K51.918 Ulcerative colitis, unspecified with other complication
CPT/HCPCS: 36415; 80076; 85025; 86140

== ENCOUNTER 2025-04-01 14:13 | Outpatient (CLI) | payer MEDICARE, OTHER, SELFPAY ==
[2025-04-01 13:24] LABS: Abs Immature Grans 0.05 10^3/uL (0.0-0.06); Absolute Basophil Count 0.01 10^3/uL (0.0-0.2); Absolute Eosinophil Count 0.04 10^3/uL (0.0-0.7); Absolute Monocyte Count 0.49 10^3/uL (0.1-0.8); Absolute Neutrophil Count 5.28 10^3/uL (1.2-6.7); Basophils % 0.1 %; Eosinophils % 0.6 %; HCT 39.3 % (40.0-50.0); HGB 13.7 g/dL (13.5-17.5); Immature Grans % 0.7 %; MCH 33.4 pg (27.0-33.0); MCHC 34.9 % (32.0-36.0); MCV 96 fL (80-95); Monocytes % 6.9 %; Neutrophils % 74.7 %; Platelet Count 150 10^3/uL (130-400); RDW-SD 46.1 fL; WBC 7.07 10^3/uL (4.4-10.8)
[2025-04-01 14:19] LABS: ALT 40 U/L (16-63); AST 28 U/L (15-37); Albumin 3.2 g/dL (3.4-5.0); Alkaline Phosphatase 42 U/L (46-116); Bilirubin, Direct 0.2 mg/dL (0.0-0.2); Bilirubin, Total 0.7 mg/dL (0.2-1.0); TSH 1.38 uIU/mL (0.36-3.74); Total Protein 6.4 g/dL (6.4-8.2)
[2025-04-01 14:20] LABS: C-Reactive Protein < 0.50 mg/dL (<or=0.5)
== END 2025-04-01 14:14 | disposition home or self-care (01) ==
LOC: LBO 14:14
PROVIDERS: PCP Family Medicine; Visit Provider Internal Medicine Gastroenterology
DX: Z79.620 Long term (current) use of immunosuppressive biologic (principal); K52.9 Noninfective gastroenteritis and colitis, unspecified
CPT/HCPCS: 36415; 80076; 84443; 85025; 86140

== ENCOUNTER 2025-04-02 08:51 | Outpatient (REF) | payer MEDICARE, OTHER, SELFPAY ==
[2025-04-06 21:02] LABS: Calprotectin 200 mcg/g
== END 2025-04-02 08:52 | disposition home or self-care (01) ==
LOC: LBN 08:51
PROVIDERS: PCP Family Medicine; Visit Provider Internal Medicine Gastroenterology
DX: K52.9 Noninfective gastroenteritis and colitis, unspecified (principal)
CPT/HCPCS: 83993

== ENCOUNTER 2025-04-15 02:42 | Outpatient (CLI) | payer MEDICARE, OTHER, SELFPAY ==
--- NOTE | 2025-04-15 | DI.US_ITS ---
Exam(s) US LOWER EXTREMITY VENOUS LT EXAM: US LOWER EXTREMITY VENOUS LT CLINICAL HISTORY: DVT LOWER EXT,ACUTE,I82.402, 3 MO RECHECK,SWELLING,EVAL FOR DVT, ON TECHNIQUE: Grayscale, color, and doppler imaging of the deep venous system of the lower extremity w as performed. COMPARISON: US US LOWER EXTREMITY VENOUS LT from 01/27/2025 FINDINGS: This is a positive study. There is evidence intraluminal thrombus-DVT in the proximal left femoral vein measuring 4 cm length. When compared to the ultrasound of 01/27/2025 this appears of slightly increased in length, usually measuring 2.3 cm. The mid-distal femoral vein are patent as is the ipsilateral popliteal vein. Prev iously present intraluminal thrombus in the popliteal vein is no longer seen In addition, there is DVT in the calf involving the left peroneal vein and tibioperoneal vein, this m easuring 2-3 cm length. No superficial thrombophlebitis IMPRESSION: 1. Positive study for DVT above and below the knee as described above. DATA REPOSITORY:
--- NOTE | 2025-04-15 13:50 | DI.RAD_ITS ---
Exam(s) XR KNEE LT 3V AP,LAT,RUIZ EXAM: XR KNEE LT 3V AP,LAT,RUIZ h CLINICAL HISTORY: LT KNEE PAIN, M25.562. TECHNIQUE: 2D digital imaging was performed. COMPARISON: No exams were available for comparison FINDINGS: 3 views No evidence of fracture. Small joint effusion noted. There is advanced narrowing of the medial compartment. Lateral compartment exhibits normal height. No obvious findings in the patellofemoral compartment although there is no sunrise view. Bone density normal. No significant osseous lesions. IMPRESSION: There are advanced degenerative narrowing changes in the medial compartment. Small joint effusion al so noted DATA REPOSITORY: RADIATION DOSE DELIVERED:
--- NOTE | 2025-04-15 14:00 | DI.RAD_ITS ---
Exam(s) XR LUMBAR SPINE COMPLETE EXAM: XR LUMBAR SPINE COMPLETE CLINICAL HISTORY: LOW BACK PAIN, M54.50. TECHNIQUE: 2D digital imaging was performed. COMPARISON: CR XR LUMBAR SPINE COMPLETE from 12/07/2022 FINDINGS: Five views Degenerative mild scoliosis convex left again noted, slightly more than previous. No evidence of fracture. Again noted is degenerative anterolisthesis of L4 upon L5 similar amount of previous. There is mild disc space narrowing at this level again noted. More prominent disc space narrowing again noted at L3-4 level and L1-2 and T12-L1. There is preserved disc height at L5-S1 and L2-3 levels. There is multilevel facet arthropathy. SI joints appear unremarkable. IMPRESSION: Multilevel degenerative disc disease and facet arthropathy. There is also again noted degenerative a nterolisthesis of L4 upon L5. There is most probably spinal canal stenosis at this level. DATA REPOSITORY: RADIATION DOSE DELIVERED:
== END 2025-04-15 03:02 ==
LOC: DI 02:43
PROVIDERS: PCP Family Medicine; Visit Provider Family Medicine
DX: I82.412 Acute embolism and thrombosis of left femoral vein (principal); M51.360 Other intervertebral disc degeneration, lumbar region with discogenic back pain only
CPT/HCPCS: 73562; 72110; 93971

== ENCOUNTER 2025-05-13 01:07 | Outpatient (CLI) | payer MEDICARE, OTHER, SELFPAY ==
[2025-05-13 15:29] LABS: Abs Immature Grans 0.03 10^3/uL (0.0-0.06); Absolute Basophil Count 0.02 10^3/uL (0.0-0.2); Absolute Eosinophil Count 0.11 10^3/uL (0.0-0.7); Absolute Lymphocyte Count 1.28 10^3/uL (1.2-3.4); Absolute Monocyte Count 0.61 10^3/uL (0.1-0.8); Absolute Neutrophil Count 3.13 10^3/uL (1.2-6.7); Basophils % 0.4 %; Eosinophils % 2.1 %; HCT 38.5 % (40.0-50.0); HGB 12.7 g/dL (13.5-17.5); Immature Grans % 0.6 %; Lymphocytes % 24.7 %; MCH 31.7 pg (27.0-33.0); MCV 96 fL (80-95); MPV 9.3 fL (8.0-11.0); Monocytes % 11.8 %; Neutrophils % 60.4 %; Platelet Count 195 10^3/uL (130-400); RBC 4.01 10^6/uL (4.36-5.78); RDW 12.9 % (11.8-14.1); RDW-SD 45.3 fL; WBC 5.18 10^3/uL (4.4-10.8)
[2025-05-13 16:00] LABS: ALT 29 U/L (16-63); AST 31 U/L (15-37); Albumin 3.1 g/dL (3.4-5.0); Alkaline Phosphatase 56 U/L (46-116); Bilirubin, Direct 0.2 mg/dL (0.0-0.2); Bilirubin, Total 0.5 mg/dL (0.2-1.0); C-Reactive Protein 2.28 mg/dL (<or=0.5); Total Protein 6.6 g/dL (6.4-8.2)
== END 2025-05-13 01:08 | disposition home or self-care (01) ==
LOC: LBO 01:07
PROVIDERS: PCP Family Medicine; Visit Provider Internal Medicine Gastroenterology
DX: Z79.620 Long term (current) use of immunosuppressive biologic (principal)
CPT/HCPCS: 36415; 80076; 85025; 86140

== ENCOUNTER 2025-06-17 16:40 | Outpatient (CLI) | payer MEDICARE, OTHER, SELFPAY ==
[2025-06-17 16:31] LABS: Abs Immature Grans 0.03 10^3/uL (0.0-0.06); HCT 41.2 % (40.0-50.0); HGB 13.4 g/dL (13.5-17.5); Immature Grans % 0.5 %; MCH 30.7 pg (27.0-33.0); MCHC 32.5 % (32.0-36.0); MCV 94 fL (80-95); MPV 9.6 fL (8.0-11.0); Platelet Count 200 10^3/uL (130-400); RBC 4.37 10^6/uL (4.36-5.78); RDW 12.8 % (11.8-14.1); RDW-SD 44.4 fL; WBC 6.59 10^3/uL (4.4-10.8)
[2025-06-17 17:20] LABS: ALT 28 U/L (16-63); AST 30 U/L (15-37); Albumin 3.4 g/dL (3.4-5.0); Alkaline Phosphatase 64 U/L (46-116); Bilirubin, Direct 0.1 mg/dL (0.0-0.2); Bilirubin, Total 0.4 mg/dL (0.2-1.0); C-Reactive Protein 0.86 mg/dL (<or=0.5); Total Protein 7.2 g/dL (6.4-8.2)
== END 2025-06-17 16:41 | disposition home or self-care (01) ==
LOC: LBO 16:42
PROVIDERS: PCP Family Medicine; Visit Provider Internal Medicine Gastroenterology
DX: Z79.620 Long term (current) use of immunosuppressive biologic (principal)
CPT/HCPCS: 36415; 80076; 85025; 86140

== ENCOUNTER 2025-06-23 18:08 | Outpatient (REF) | payer MEDICARE, OTHER, SELFPAY | END 2025-06-23 18:09 | disposition home or self-care (01) | LOC: LBN 18:08 | PROVIDERS: PCP Family Medicine; Visit Provider Internal Medicine Gastroenterology | DX: K52.9 Noninfective gastroenteritis and colitis, unspecified (principal) | CPT/HCPCS: 83993 ==

== ENCOUNTER 2025-07-27 08:07 | Outpatient (CLI) | payer MEDICARE, SELFPAY ==
--- NOTE | 2025-07-27 | DI.US_ITS ---
Exam(s) US LOWER EXTREMITY VENOUS LT EXAM: US LOWER EXTREMITY VENOUS LT CLINICAL HISTORY: EMBOLISM THROMBOSIS LEFT LOWER LEG I82.402 FU ? DVT RESOLVED TECHNIQUE: Grayscale, color, and doppler imaging of the deep venous system of the left lower extremity was performed. COMPARISON: US US LOWER EXTREMITY VENOUS LT from 04/15/2025 FINDINGS: There is presently some residual nonocclusive thrombus in the proximal femoral vein in the proximal thigh. The residual clot length in the femoral vein is 3.4 cm The mid-distal femoral vein remain patent as is the ipsilateral popliteal vein. Below the level of the knee there is some nonocclusive thrombus noted in 1 of the paired peroneal veins of the calf. Clot length is 2 cm at this level IMPRESSION: 1. There is some improvement when compared to the prior study. However, there is still significant residual nonocclusive clot in the proximal femoral vein with clot length presently measuring 3.4 cm 2. There is also some nonocclusive thrombus in 1 of the 2 paired peroneal veins of the calf. Clot length at this level is 2 cm. DATA REPOSITORY:
== END 2025-07-27 08:27 ==
LOC: DI 08:08
PROVIDERS: PCP Family Medicine; Visit Provider Family Medicine
DX: I82.402 Acute embolism and thrombosis of unspecified deep veins of left lower extremity (principal)
CPT/HCPCS: 93971

== ENCOUNTER 2025-08-12 17:38 | Outpatient (REF) | payer MEDICARE, SELFPAY | END 2025-08-12 17:39 | disposition home or self-care (01) | LOC: LBN 17:38 | PROVIDERS: PCP Family Medicine; Visit Provider Student in an Organized Health Care Education/Training Program | DX: K52.9 Noninfective gastroenteritis and colitis, unspecified (principal) | CPT/HCPCS: 83993 ==

== ENCOUNTER 2025-09-15 13:51 | Outpatient (CLI) | payer MEDICARE, SELFPAY ==
[2025-09-15 14:12] LABS: Abs Immature Grans 0.04 10^3/uL (0.0-0.06); HCT 41.5 % (40.0-50.0); HGB 13.8 g/dL (13.5-17.5); Immature Grans % 0.5 %; MCH 31.2 pg (27.0-33.0); MCHC 33.3 % (32.0-36.0); MCV 94 fL (80-95); MPV 8.8 fL (8.0-11.0); Platelet Count 161 10^3/uL (130-400); RBC 4.42 10^6/uL (4.36-5.78); RDW 14.7 % (11.8-14.1); RDW-SD 51.8 fL; WBC 7.87 10^3/uL (4.4-10.8)
[2025-09-15 15:02] LABS: ALT 58 U/L (16-63); AST 26 U/L (15-37); Albumin 3.2 g/dL (3.4-5.0); Alkaline Phosphatase 61 U/L (46-116); Bilirubin, Direct 0.2 mg/dL (0.0-0.2); Bilirubin, Total 0.5 mg/dL (0.2-1.0); Total Protein 6.6 g/dL (6.4-8.2)
[2025-09-15 15:05] LABS: C-Reactive Protein < 0.50 mg/dL (<or=0.5)
== END 2025-09-15 13:52 | disposition home or self-care (01) ==
LOC: LBO 14:00
PROVIDERS: PCP Family Medicine; Visit Provider Internal Medicine Gastroenterology
DX: K52.9 Noninfective gastroenteritis and colitis, unspecified (principal); Z79.620 Long term (current) use of immunosuppressive biologic
CPT/HCPCS: 36415; 80076; 85025; 86140

== ENCOUNTER 2025-09-16 18:40 | Outpatient (REF) | payer MEDICARE, SELFPAY | END 2025-09-16 18:41 | disposition home or self-care (01) | LOC: LBN 18:40 | PROVIDERS: PCP Family Medicine; Visit Provider Student in an Organized Health Care Education/Training Program | DX: K52.9 Noninfective gastroenteritis and colitis, unspecified (principal) | CPT/HCPCS: 83993 ==

== ENCOUNTER 2025-10-18 10:43 | Outpatient (CLI) | payer MEDICARE, SELFPAY ==
[2025-10-18 09:00] LABS: Abs Immature Grans 0.16 10^3/uL (0.0-0.06); HCT 44.0 % (40.0-50.0); HGB 14.7 g/dL (13.5-17.5); Immature Grans % 2.6 %; MCH 31.8 pg (27.0-33.0); MCHC 33.4 % (32.0-36.0); MCV 95 fL (80-95); MPV 8.5 fL (8.0-11.0); Platelet Count 132 10^3/uL (130-400); RBC 4.62 10^6/uL (4.36-5.78); RDW 13.9 % (11.8-14.1); RDW-SD 49.2 fL; WBC 6.17 10^3/uL (4.4-10.8)
[2025-10-18 09:58] LABS: C-Reactive Protein < 0.50 mg/dL (<=0.50)
[2025-10-18 10:03] LABS: ALT 67 U/L (10-49); AST 38 U/L (<34); Albumin 3.9 g/dL (3.2-5.0); Alkaline Phosphatase 47 U/L (46-116); Anion Gap 7.9 mmol/L (3-11); BUN 19 mg/dL (9-23); Bilirubin, Direct 0.3 mg/dL (<=0.3); Bilirubin, Total 0.80 mg/dL (0.2-1.2); CO2 29.1 mmol/L (20.0-31.0); Calcium 9.2 mg/dL (8.3-10.6); Chloride 105 mmol/L (98-107); Cholesterol 198 mg/dL (<200); Glucose 108 mg/dL (74-106); HDL Cholesterol 107 mg/dL (>40); Potassium 4.3 mmol/L (3.5-5.1); Sodium 142 mmol/L (136-145); Total Protein 6.4 g/dL (5.7-8.2)
[2025-10-19 09:55] LABS: Hepatitis C Ab w Rflx HCV PCR Negative (Negative)
== END 2025-10-18 10:44 | disposition home or self-care (01) ==
LOC: LBO 10:44
PROVIDERS: PCP Family Medicine; Visit Provider Internal Medicine Gastroenterology
DX: E78.00 Pure hypercholesterolemia, unspecified (principal); Z79.620 Long term (current) use of immunosuppressive biologic; K51.918 Ulcerative colitis, unspecified with other complication
CPT/HCPCS: 36415; 80053; 80061; 80076; 86803; 85025; 86140

== ENCOUNTER 2025-10-19 10:18 | Outpatient (REF) | payer MEDICARE, SELFPAY | END 2025-10-19 10:19 | disposition home or self-care (01) | LOC: LBN 10:18 | PROVIDERS: PCP Family Medicine; Visit Provider Internal Medicine Gastroenterology | DX: K52.9 Noninfective gastroenteritis and colitis, unspecified (principal) | CPT/HCPCS: 83993 ==